=== PATIENT | male | born 1935 | race Caucasian/White ===

== ENCOUNTER 2017-09-22 06:37 | Day surgery (SDC) | payer MEDICARE, BC ==
[2017-09-22 08:07] VITALS: BP 146/62; TEMP 97.8
[2017-09-22 10:21] LABS: CSF, Glucose 51 mg/dl (40-70)
--- NOTE | 2017-09-22 14:40 | RAD ---
LUMBAR PUNCTURE: Date: 09/22/17 HISTORY: Normal pressure hydrocephalus. COMPARISON: None. EXPOSURE: 1.5 minutes fluoro time. 2633.1 mGy*cm^2. FINDINGS: Initial 2 view dermatology sales representative lumbar spine radiograph demonstrates five lumbar-type vertebral bodies. There is moderate degenerative change at the L2-3 level. Vertebral body height is maintained. No fracture. Technically successful lumbar puncture. Opening pressure is approximately 3 mm of water. Closing pres sure is 0 mm of water. A total of 30 mL of clear CSF fluid was obtained. There were no immediate or postprocedure complicati ons. TECHNIQUE: Consent obtained to perform a lumbar puncture for evaluating for normal pressure hydrocephalus. Large volume tap was requested. Patient's back was evaluated. The L1-L2 level was deemed appropriate. Skin was prepped and draped in the sterile fashion. 1% lidocaine, buffered with sodium bicarbonate, was u sed for local anesthesia. Under fluoroscopic guidance, a 20 gauge spinal needle was advanced into the CSF space. Inner stylette was removed. There was clear CSF to the hub of the needle. Opening pressur e was attempted to be determined. The CSF fluid did not extend beyond the hub of the needle. A second attempt was made at the L2-3 level. There was flow of clear CSF to the hub of the needle. Short tubi ng catheter was connected. Opening pressure was 3 mm of water. A total of 30 mL of clear CSF was obta ined. The patient tolerated the procedure well. No immediate or postprocedure complications. The clos ing pressure was 0 mm of water. IMPRESSION: Successful lumbar puncture. Findings of study were conveyed to Dr. Blanco on 09/22/17 at 1057 hours. CODE CR. POS: [facility]
== END 2017-09-22 10:45 | disposition home or self-care (01) ==
LOC: RAD 06:37
PROVIDERS: ATTEND Surgery
PROC: 009 Central Nervous System and Cranial Nerves, Drainage (ICD-10-PCS; principal; 2017-09-22)
DX: G91.9 Hydrocephalus, unspecified (principal); G93.89 Other specified disorders of brain; Z87.891 Personal history of nicotine dependence
CPT/HCPCS: 62270; 82945; 84157; 87070; 87205; 89051

== ENCOUNTER 2018-08-17 07:19 | Emergency (ER) | payer MEDICARE, BC ==
[2018-08-17 07:54] LABS: #Eosinphils 0.1 thou/uL (0.0-0.7); #Lymphocytes 1.8 thou/uL (1.20-3.40); #Monocytes 0.6 thou/uL (0.11-0.59); #Neutrophils 3.5 thou/uL (1.40-6.50); %Basophils 0.7 % (0.0-1.0); %Eosinophils 2.2 % (0.0-10.0); %Lymphocytes 29.7 % (21.0-51.0); %Monocytes 10.4 % (0.0-10.0); Hemoglobin 12.2 g/dL (14.0-18.0); Mean Corpuscular HGB CONC 32.5 g/dL (32.0-36.0); Mean Corpuscular Hemoglobin 32.1 pg (27.0-31.0); Mean Corpuscular Volume 98.8 fL (78.0-98.0); Mean Platelet Volume 9.8 fL (7.4-10.4); Platelet Count 163 thou/uL (130-400); RBC Distribution Width 13.1 % (11.5-14.5); White Blood Cell (WBC) Count 6.1 thou/uL (4.8-10.8)
[2018-08-17 08:14] LABS: ALT (SGPT) 34 U/L (8-55); AST (SGOT) 29 U/L (5-34); Albumin 3.7 g/dL (3.4-4.8); Alkaline Phosphatase 191 U/L (40-150); Anion Gap 10 mmol/L (10-20); BUN (Urea Nitrogen) 16 mg/dL (8.4-25.7); Bilirubin, Total 0.6 mg/dL (0.2-1.2); CK (CPK) 86 U/L (30-200); Calc. Creatinine Clearance 0 mL/min (70-130); Carbon Dioxide 26 mmol/L (23-31); Chloride 108 mmol/L (98-107); Estimated GFR-MDRD 69; Globulin 3.4 g/dL (2.4-3.5); Glucose 102 mg/dL (83-110); Lipase 37 U/L (8-78); Potassium 4.2 mmol/L (3.5-5.1); Protein, Total 7.1 g/dL (5.8-8.1); Sodium 140 mmol/L (136-145)
[2018-08-17 08:17] LABS: CKMB 1.6 ng/mL (0-6.6); Troponin I Less than 0.010 ng/mL (< 0.028)
--- NOTE | 2018-08-17 08:58 | CT ---
CT HEAD NONCOTNRAST: HISTORY: Fall. Head injury. COMPARISON: 04/26/2017. FINDINGS: There is no evidence of acute intracranial hemorrhage or infarct. Diffuse cortical atrophy is again demonstrated. No mass effect or shift of midline structures. Visualized paranasal sinuses remain we ll aerated. Subcutaneous fat parenchymal opacity left frontal scalp. IMPRESSION: 1. Chronic-type findings are stable. No acute intracranial abnormalities are demonstrated. 2. Soft tissue swelling of frontal scalp POS: [facility]
--- NOTE | 2018-08-17 09:24 | CT ---
CT CERVICAL SPINE NONCONTRAST: HISTORY: Fall. Neck injury. COMPARISON: 04/26/2017. FINDINGS: Vertebral body heights are maintained. Anterior operative fixation at the C3-4 level is again demons trated. There is prominent osteophytosis. Multilevel severe central canal and foraminal stenoses, m ost pronounced at the C5-6 and C6-7 levels. No acute fracture or dislocation. Cervicothoracic junct ion is intact. IMPRESSION: Postoperative and prominent degenerative changes. No acute osseous abnormalities are demonstrated. POS: [facility]
--- NOTE | 2018-08-17 09:38 | CT ---
CT CHEST WITH IV COTNRAST CT ABDOMEN AND PELVIS WITH IV CONTRAST CT THORACIC SPINE NONCONTRAST CT LUMBAR SPINE NONCONTRAST: HISTORY: Fall. Chest and abdomen injury. Back injury. FINDINGS: Parenchymal scarring and interstitial thickening at the lung bases. Favored to be chronic. No evide nce of pneumothorax or mediastinal hematoma. Calcification within the arterial structures. There is a 0.5 cm calculus within a nondilated calyx at the inferior pole left kidney. Renal colle cting systems and ureters are decompressed. Diverticula arise from the colon without adjacent inflam mation. No free air or free fluid. Mild compression of the superior end plate of L1 is apparent with noncorticated linear lucencies on t he axial images in the area of compression. Other mild multilevel chronic-appearing compressions are present with prominent osteophytosis through out the vertebral bodies and facets. IMPRESSION: 1. Very mild acute compression fracture of the superior end plate of L1. Posterior elements are not involved. 2. Nonobstructing 5 mm left renal calculus. 3. Atherosclerosis. 4. Diverticulosis. POS: [facility]
[2018-08-17 09:45] LABS: Bilirubin Negative (Negative); Blood, Urine Negative (Negative); Clarity CLEAR (Clear); Glucose, Urine (Dipstick) Negative (Negative); Leukocyte Negative (Negative); Nitrite Negative (Negative); Protein, Urine (Dipstick) Negative (Neg-Trace); Specific Gravity, Urine 1.032 (1.002-1.036)
[2018-08-17] MEDS ORDERED: Lidocaine 1% w/Epinephrine 1:100K 20 ML VIAL ONE (09:53)
[2018-08-17] MEDS ORDERED: traMADol HCl 50 MG TAB ONE (10:24)
[2018-08-17] MEDS ORDERED: cloNIDine 0.1 MG TAB ONE (10:24)
[2018-08-17] MEDS ORDERED: Adacel (T-DAP) 0.5 ML VIAL ONE (10:24)
[2018-08-17] MEDS ORDERED: ISOVUE-370 76%-LOCM 1 ML ONE (13:28)
== END 2018-08-17 12:47 | disposition home or self-care (01) ==
LOC: ERS 07:19
DX: S32.019A Unspecified fracture of first lumbar vertebra, initial encounter for closed fracture (principal); S01.112A Laceration without foreign body of left eyelid and periocular area, initial encounter; E03.9 Hypothyroidism, unspecified; E78.5 Hyperlipidemia, unspecified; I10 Essential (primary) hypertension; K21.9 Gastro-esophageal reflux disease without esophagitis; I25.10 Atherosclerotic heart disease of native coronary artery without angina pectoris; G93.41 Metabolic encephalopathy; H35.30 Unspecified macular degeneration; Z79.899 Other long term (current) drug therapy; Z23 Encounter for immunization; W19.XXXA Unspecified fall, initial encounter; Y92.129 Unspecified place in nursing home as the place of occurrence of the external cause
CPT/HCPCS: 12011; 36415; 70450; 71260; 72125; 74177; 80053; 81003; 82550; 82553; 83690; 84484; 85025; 87077; 87086; 87186; 90471; 90715; 93005; J2001

== ENCOUNTER 2018-09-10 11:02 | Outpatient (CLI) | payer MEDICARE, BC ==
[2018-09-10 13:41] LABS: Hemoglobin 12.9 g/dL (14.0-18.0); Mean Corpuscular HGB CONC 33.3 g/dL (32.0-36.0); Mean Corpuscular Hemoglobin 32.5 pg (27.0-31.0); Mean Corpuscular Volume 97.7 fL (78.0-98.0); Mean Platelet Volume 9.6 fL (7.4-10.4); Platelet Count 173 thou/uL (130-400); RBC Distribution Width 13.2 % (11.5-14.5); Red Blood Cell (RBC) Count 3.97 mill/uL (4.70-6.10); White Blood Cell (WBC) Count 6.6 thou/uL (4.8-10.8)
[2018-09-10 13:56] LABS: INR-International Normal Ratio 1.1; PTT 29.9 SEC (22.9-36.1); Prothrombin Time 14.1 SEC (12.0-14.7)
[2018-09-10 14:01] LABS: Anion Gap 12 mmol/L (10-20); BUN (Urea Nitrogen) 14 mg/dL (8.4-25.7); Calc. Creatinine Clearance 0 mL/min (70-130); Carbon Dioxide 25 mmol/L (23-31); Chloride 107 mmol/L (98-107); Estimated GFR-MDRD 76; Glucose 73 mg/dL (83-110); Potassium 3.8 mmol/L (3.5-5.1); Sodium 140 mmol/L (136-145)
== END 2018-09-10 11:03 | disposition home or self-care (01) ==
LOC: LABBT 11:02
PROVIDERS: ATTEND Surgery
DX: Z01.818 Encounter for other preprocedural examination (principal); G91.9 Hydrocephalus, unspecified
CPT/HCPCS: 80048; 85027; 85610; 85730; 93005; 93010

== ENCOUNTER 2018-09-10 11:15 | Inpatient (IN) | payer MEDICARE, BC ==
[2018-09-10 11:32] VITALS: BMI 29.0
[2018-09-15] MEDS ORDERED: Bacitracin Zinc Ointment 30 gm TUBE ONE (09:21)
[2018-09-15] MEDS ORDERED: Thrombin 5000 UNITS/5 ML VIAL ONE (09:21)
[2018-09-15] MEDS ORDERED: Sodium Chloride 0.9% 10 ML ONE (09:21)
[2018-09-15] MEDS ORDERED: Bupivacaine/Epinephrine 0.25% 30 ML VIAL ONE (09:21)
[2018-09-15] MEDS ORDERED: CEFAZOLIN 2 GM/50 ML BAG ONE (09:58)
[2018-09-15] MEDS ORDERED: Fentanyl 100 MCG/2 ML VIAL ONE (10:09)
[2018-09-15] MEDS ORDERED: Promethazine HCl 25 MG/ML VIAL IM PRN ×2 (11:21→11:42)
[2018-09-15] MEDS ORDERED: PACU-Morphine 4MG/ML VIAL SLOW IVP PRN (11:21)
[2018-09-15] MEDS ORDERED: Promethazine HCl 25 MG/ML VIAL SLOW IVP PRN (11:21)
[2018-09-15] MEDS ORDERED: Ondansetron HCl/PF 4 MG/2 ML Vial IVP PRN (11:21)
[2018-09-15] MEDS ORDERED: Morphine Sulfate 2 MG/ML SYRINGE SLOW IVP PRN (11:21)
[2018-09-15] MEDS ORDERED: HYDROmorphone 2 MG/ML VIAL SLOW IVP PRN (11:21)
[2018-09-15] MEDS ORDERED: Acetaminophen 325 MG TAB PO PRN (11:42)
[2018-09-15] MEDS ORDERED: Labetalol HCl 100 MG/20 ML VIAL SLOW IVP PRN (11:42)
[2018-09-15] MEDS ORDERED: Mag-Al 1200 mg/1200 mg/30 ML UDCUP PO PRN (11:42)
[2018-09-15] MEDS ORDERED: Docusate 100 MG CAP PO PRN (11:42)
[2018-09-15] MEDS ORDERED: Fleet Enema 133 ML BOT PR PRN (11:42)
[2018-09-15] MEDS ORDERED: hydrALAZINE 20 MG/ML VIAL ONE (11:45)
--- NOTE | 2018-09-15 12:27 | OP ---
DATE OF PROCEDURE: 09/15/2018 OR: OR #12. WOUND TYPE: Type 1 wound. SURGEON: Nate Blanco M.D. ENVIRONMENTAL EMERGENCIES PLANNER: Bruce Barakat PA-C. NOTE: I should note that Dr. Fortino Payne assisted with the abdominal portion of the procedure. PROCEDURE: Placement of right ventriculoperitoneal shunt with the use of programmable valve set at 1 .5. PREPROCEDURE DIAGNOSIS: Normal pressure hydrocephalus. POST-PROCEDURE DIAGNOSIS: Normal pressure hydrocephalus. PROCEDURE: After informed consent was obtained from the patient, the patient brought to OR 12. Prop er patient pause and identification was carried out. He was placed under excellent general endotrach eal anesthesia and positioned supine on the OR table with a bump placed under his right thorax and ab domen. This region was sterilely cleansed, prepared, and draped and the abdomen, the thorax, the nec k and the right frontal region following the clipping of hair. A semicircular incision was drawn out in the region of the right Daron's point and a small linear incision in the retroauricular region o n the right side. This region again was all sterilely cleansed, prepared and draped. Proper patient pause and identification was carried out. The right frontal incision was opened, the scalp reflecte d a rosario hole fashion. We then tunneled using the abdominal shunt passer from the retroauricular wou nd down to the peritoneal wound. Dr. Payne received that catheter. We then attached it to the magdalena ve in the right semicircular wound and the dura was opened. Ventricular catheter was placed with ret urn of fair pressure CSF and this was connected to the programmable valve. Copious irrigation occurr ed throughout as did maximizing hemostasis. The wound was then closed in anatomic layers following t he sprinkling of vancomycin powder. The patient then emerged from anesthesia.
[2018-09-15] MEDS: Sodium Chloride 0.9% 1,000 ML IV SCH (13:20)
[2018-09-15] MEDS ORDERED: Ondansetron PF 4 MG/2 ML Vial ONE (14:31)
[2018-09-15] MEDS ORDERED: Dexamethasone 20 MG/5 ML VIAL ONE (14:31)
[2018-09-15] MEDS ORDERED: PROPOFOL 200 MG/20 ML VIAL ONE (14:31)
[2018-09-15] MEDS ORDERED: Metoclopramide HCl 10 MG/2 ML VIAL ONE (14:31)
[2018-09-15] MEDS ORDERED: Lidocaine 1% PF 5 ML VIAL ONE (14:31)
[2018-09-15] MEDS ORDERED: Glycopyrrolate 0.2 MG/ML 5 ML SYRINGE ONE (14:31)
[2018-09-15] MEDS: CEFAZOLIN 2 GM/50 ML BAG IVPB SCH (18:35)
--- NOTE | 2018-09-15 20:26 | OP ---
DATE OF PROCEDURE: 09/15/2018 PREOPERATIVE DIAGNOSIS: Normal pressure hydrocephalus. POSTOPERATIVE DIAGNOSIS: Normal pressure hydrocephalus. PROCEDURE: Laparoscopic placement of permanent intraabdominal drain (abdominal part of ABSTRACT WRITER shunt). SURGEON: Dr. Payne. ANESTHESIA: General. ESTIMATED BLOOD LOSS: Minimal. COMPLICATIONS: None. TECHNIQUE: The patient is taken to the operating room and placed supine on the operating room table. After general anesthetic was obtained, the abdomen, chest, right head and neck is all shaved, prepp ed, and draped in a sterile fashion as Neurosurgery works on the scalp exposure. I performed curved incision below the umbilicus, cautery dissected down to and score the fascia. Abdominal cavity enter ed bluntly using a Caty clamp. Holding stitch of PDS was placed on each side of the fascia. A 5 mm trocar was placed and high-flow pneumoperitoneum was obtained. Right upper quadrant 5-mm port is pl aced as well. Neurosurgery tunneled the tubing for the ABSTRACT WRITER shunt down from the neck, chest and in the epigastric area. A counter incision was made in this area and a hole was made into the peritoneum u p over the liver. The ABSTRACT WRITER shunt tubing is passed up over the liver. The redundancy of the tubing is pulled out into the abdomen until Neurosurgery is happy with length up towards the scalp. All port s ites are infiltrated using local anesthetic. All ports are removed under camera visualization and pn eumoperitoneum was let down. The PDS used to close the fascial defect below the umbilicus. All inci sions were irrigated and closed using 4-0 Monocryl and Dermabond after Neurosurgery finished their po rtion of the procedure. The patient is en route to recovery in stable condition. All instrument cou nts, needle counts, lap counts were correct.
[2018-09-15] MEDS ORDERED: Atorvastatin Calcium 40 MG TAB PO SCH (21:00)
[2018-09-15] MEDS ORDERED: SAW PALMETTO FRUIT 450 MG PO SCH (21:00)
[2018-09-16] MEDS: CEFAZOLIN 2 GM/50 ML BAG IVPB SCH (03:14)
[2018-09-16] MEDS ORDERED: Levothyroxine Sodium 125 MCG TAB PO SCH (06:00)
[2018-09-16] MEDS ORDERED: Modafinil 100 MG TAB PO SCH (09:00)
[2018-09-16] MEDS ORDERED: Venlafaxine HCl XR 75 MG CAP PO SCH (09:00)
[2018-09-16] MEDS: Sodium Chloride 0.9% 1,000 ML IV SCH (09:31)
[2018-09-16 11:41] VITALS: TEMP 98.3
--- NOTE | 2018-09-16 11:56 | PRG ---
DATE OF SERVICE: 09/16/2018 Mr. Sykes is postoperative day 1 from a shunt placement. The shunt is set at 1.5. His wounds are healing well. He is much improved in regards to level of alertness and interaction. He talks approp riately, moves all 4 extremities. He certainly appears to be less clouded cognitively. We will plan to transfer him back to his facility today.
[2018-09-16 12:08] VITALS: BP 134/66
== END 2018-09-16 13:50 | DRG 33 ==
LOC: INTOOBSV 09-15 08:12 → OBSVTOIN 09-15 08:12 → SURG A 09-15 08:12
PROVIDERS: ADMIT Surgery; ATTEND Surgery
PROC: 00164J6 Bypass Cerebral Ventricle to Peritoneal Cavity with Synthetic Substitute, Percutaneous Endoscopic Approach (ICD-10-PCS; principal; 2018-09-15)
DX: G91.2 (Idiopathic) normal pressure hydrocephalus (principal); G47.33 Obstructive sleep apnea (adult) (pediatric); I25.10 Atherosclerotic heart disease of native coronary artery without angina pectoris; E78.5 Hyperlipidemia, unspecified
CPT/HCPCS: 96365; 96366; G0378; G8978-GP-CM; G8979-GP-CK; J0131; J0360; J1100; J2001; J2405; J2704; J2765; J3010; J3370; J3490

== ENCOUNTER 2018-09-30 10:49 | Observation (INO) | payer MEDICARE, BC ==
[~2018-09-30 10:49] MED LIST: Iopamidol 370 76% 100 ML VIAL ONE
[2018-09-30 11:33] LABS: #Eosinphils 0.1 thou/uL (0.0-0.7); #Lymphocytes 0.5 thou/uL (1.20-3.40); #Monocytes 0.6 thou/uL (0.11-0.59); #Neutrophils 9.8 thou/uL (1.40-6.50); %Basophils 0.2 % (0.0-1.0); %Eosinophils 0.5 % (0.0-10.0); %Lymphocytes 4.3 % (21.0-51.0); %Monocytes 5.7 % (0.0-10.0); %Neutrophils 89.4 % (42.0-75.0); Hemoglobin 13.8 g/dL (14.0-18.0); Mean Corpuscular Hemoglobin 32.2 pg (27.0-31.0); Mean Corpuscular Volume 97.7 fL (78.0-98.0); Mean Platelet Volume 9.7 fL (7.4-10.4); Platelet Count 179 thou/uL (130-400); RBC Distribution Width 13.1 % (11.5-14.5); Red Blood Cell (RBC) Count 4.27 mill/uL (4.70-6.10); White Blood Cell (WBC) Count 10.9 thou/uL (4.8-10.8)
[2018-09-30] MEDS ORDERED: Ondansetron PF 4 MG/2 ML Vial ONE (11:35)
[2018-09-30] MEDS ORDERED: Morphine 4 MG/ML VIAL ONE (11:57)
[2018-09-30] MEDS ORDERED: Morphine 2 MG/ML SYRINGE ONE (11:58)
--- NOTE | 2018-09-30 11:59 | RAD ---
RADIOGRAPH CHEST 1 VIEW: HISTORY: 83-year-old male with chest pain. FINDINGS: The thoracic aorta is tortuous and ectatic. There is no evidence of air space density, pneumothorax, or pulmonary edema. The lateral costophrenic angles are sharp. IMPRESSION: 1) No acute pulmonary findings. 2) Ectasia of thoracic aorta. shoaib POS: [facility]
[2018-09-30] MEDS ORDERED: Acetaminophen 325 MG Suppository ONE (12:08)
--- NOTE | 2018-09-30 12:13 | CT ---
CT ABDOMEN WITH CONTRAST CT PELVIS WITH CONTRAST: DATE: 09-30-18 HISTORY: 83-year-old male with generalized abdominal pain and abdominal distention. Rule out small bowel obstr uction. COMPARISON: 08-17-18 TECHNIQUE: IV injection of iodinated contrast media: 100 mL Isovue 370 Oral contrast media: Not administered FINDINGS: The stomach is distended with ingested liquid and a moderate amount of gas. This is new since the pre vious CT. Again noted is the approximately 0.5 cm calculus at a left renal lower pole calyx. No hydro nephrosis bilaterally. No major pathology of the liver, spleen, right kidney, adrenals, pancreas or s pleen. FISH BUTCHER shunt catheter is again demonstrated in the right upper quadrant of the perioneal cavity wh ich extends across the midline to the left just superior to the urinary bladder. Normal appearance of the urinary bladder. Surgically absent appendix by history. No signs of colonic diverticulitis. Suba cute compression fracture of superior endplate of L1. Old compression fracture of L3. No ascites or p neumoperitoneum. No pleural effusion. IMPRESSION: 1. Gastric distension. 2. No other acute intraabdominal or intrapelvic findings. 3. Nephrolithiasis consisting of a single left renal calculus. 4. Ventriculoperitoneal shunt catheter. 5. Subacute L1 compression fracture. 6. No evidence of small bowel obstruction. EMILY Slater POS: [facility]
[2018-09-30 12:17] LABS: ALT (SGPT) 39 U/L (8-55); AST (SGOT) 34 U/L (5-34); Alkaline Phosphatase 246 U/L (40-150); Anion Gap 15 mmol/L (10-20); BUN (Urea Nitrogen) 20 mg/dL (8.4-25.7); Bilirubin, Total 0.9 mg/dL (0.2-1.2); Calc. Creatinine Clearance 0 mL/min (70-130); Calcium 9.2 mg/dL (7.8-10.44); Carbon Dioxide 23 mmol/L (23-31); Chloride 108 mmol/L (98-107); Estimated GFR-MDRD 53; Glucose 165 mg/dL (83-110); Potassium 4.5 mmol/L (3.5-5.1); Sodium 141 mmol/L (136-145)
[2018-09-30 12:21] LABS: Bilirubin Negative (Negative); Blood, Urine Negative (Negative); Clarity CLEAR (Clear); Glucose, Urine (Dipstick) Negative (Negative); Leukocyte Negative (Negative); Nitrite Negative (Negative); Protein, Urine (Dipstick) Negative (Neg-Trace); Specific Gravity, Urine 1.012 (1.002-1.036); pH, Urine 6.5 (5.0-9.0)
--- NOTE | 2018-09-30 15:43 | CT ---
HEAD CT NONCONTRAST: 09/30/18 COMPARISON: 08/17/18 INDICATIONS: Fever, status post ventriculoperitoneal shunt placement. Reference made to 08/15/18 exam. FINDINGS: There is a right frontal approach ventriculostomy with tip located at midline, abutting the anterior aspect of the septum pellucidum. The ventricular system is prominent, grossly stable. There is gener alized parenchymal atrophy. White matter hypoattenuation of the right frontal lobe traverses the ind welling shunt catheter likely reactive edema. No intracranial hemorrhage, mass effect or midline shif t. IMPRESSION: 1. Interval placement of right frontal approach ventriculostomy with tip abutting the anterior a spect of the septum pellucidum. 2. Persistent, grossly stable prominence of ventricular system. 3. No acute intracranial hemorrhage or mass effect. POS: [facility]
[2018-09-30 16:30] LABS: Lactic Acid 1.9 mmol/L (0.5-2.2)
[2018-09-30] MEDS ORDERED: Acetaminophen 325 MG TAB PO PRN (17:26)
[2018-09-30] MEDS ORDERED: Sodium Chloride 0.9% 1,000 ML IV SCH (17:26)
[2018-09-30] MEDS ORDERED: Ondansetron ODT 4 MG TAB PO PRN (17:26)
[2018-09-30] MEDS ORDERED: Ondansetron PF 4 MG/2 ML Vial IVP PRN (17:26)
[2018-09-30 17:45] VITALS: BMI 32.3
[2018-09-30] MEDS ORDERED: Vancomycin HCl 1 GM in Premix Bag 1 BAG IVPB SCH (18:00)
[2018-09-30] MEDS: Sodium Chloride 0.9% 1,000 ML IV SCH ×2 (18:35→23:28)
--- NOTE | 2018-09-30 23:31 | HP ---
I have discussed the case with Dr. Manas Jaime. I agree with his assessment and plan. HISTORY OF PRESENT ILLNESS: Mr. Sykes is an 83-year-old white male patient, who underwent a BALLET PROFESSOR shunt placement on 09/15 due to normal pressure hydrocephalus. He was recovering in a long-term when this morning he was found to be altered and febrile. He was brought to our emergency room, where a CT of the abdomen was done to rule out small bowel obstruction. There was no evidence of small bowel obstruction, but the patient did have gastric distention. His chest x-ray does not show any evidence of infection. His white count is barely elevated. He is very lethargic, even fast asleep, but he was given 6 mg of morphine an hour or so before we actually evaluated him. PHYSICAL EXAMINATION: GENERAL: As stated, he is asleep. There appears to be no respiratory distress. VITAL SIGNS: He had a reported temperature of 102 degrees. EAR, NOSE, THROAT: No overt signs of trauma or fall. No erythema. NECK: Stiff, but this is hard to tell if it may be related to his age, body habitus, and significant osteoarthritis of the spine. CARDIAC: Heart rhythm is regular. No gallop or murmur noted. LUNGS: Breath sounds are diminished, but clear. There are no rales or wheezes. No consolidation. He is not using accessory muscles. ABDOMEN: Slightly distended, particularly above the umbilicus and just to the right. Bowel sounds are greatly diminished. No masses are appreciated. Hard to appreciate guarding given the patient's somnolence. EXTREMITIES: Again, hard to evaluate because the patient is sedated. LABORATORY DATA: CBC, white count 10,900, hemoglobin 13.8, hematocrit 41.7 with an MCV of 97.7. Chemistries, sodium 131, potassium 4.5, chloride 108, bicarb 23, BUN 20, creatinine is 1.31, glucose 155. Lactic acid very slightly elevated at 2.7. Urine appears clear. ASSESSMENT: Possible sepsis, no source currently. We will obtain cultures of blood and urine. We will discuss with Neurosurgery, who has already been consulted, whether or not an LP would be advisable given his fever and altered state. We will also talk with the surgery service, Dr. Payne about the placement of an NG tube for his gastric distention. Job ID: [id number]
[2018-10-01] MEDS: Acetaminophen 650 MG Suppository PR PRN ×4 (01:08→20:59)
[2018-10-01] MEDS: Piperacillin/Tazobactam 3.375 GM in Sodium Chloride 0.9% 100 ML IVPB SCH ×4 (01:08→18:28)
--- NOTE | 2018-10-01 01:29 | HP ---
RESIDENT: Manas Jaime MD. ADDITIONAL ATTENDING: Greg Harrison MD CODE STATUS: FULL. CHIEF COMPLAINT: Altered mental status and abdominal distension. HISTORY OF PRESENT ILLNESS: The patient is an 83-year-old male, presenting from the custodial with essentially a 1-day history of decreased p.o. intake and abdominal distension. The patient was in a normal state of health yesterday until he did not eat dinner. Again this morning, the patient did not tolerate p.o. and was found to be less interactive than at his baseline and taken to his PCP's office. PCP evaluated and sent him to the ER. Family denies any nausea, vomiting, diarrhea, hematochezia, melena, or hemoptysis. The patient was recently admitted on 09/15 for placement of a TAXI CAB DRIVER shunt. This was done without any complications. Family reports he has not been complaining of headaches, abdominal pain, changes in vision or stiff neck prior to this admission. Seems these symptoms are sudden onset and with unexplained etiology. The patient was given 6 mg of morphine in the ER, which he does not tolerate very well. This coupled with the baseline altered mental status makes it impossible to gain history from the patient himself. History was gathered per family members. In the ER, the patient received Tylenol 650 mg, morphine 6 mg, Zofran 4 mg and 1 L of normal saline. PAST MEDICAL HISTORY: 1. Normal pressure hydrocephalus, status post TAXI CAB DRIVER shunt. 2. Hyperlipidemia. 3. CAD. 4. Hypothyroidism. 5. Chronic low back pain. 6. Essential tremor. PAST SURGICAL HISTORY: 1. TAXI CAB DRIVER shunt placement on 09/15/2018. 2. Cardiac catheterization with stent placement. 3. Appendectomy. 4. Carpal tunnel release, bilaterally. 5. C-spine diskectomy. ALLERGIES: NO KNOWN DRUG ALLERGIES. MEDICATIONS: 1. Levothyroxine 100 mcg p.o. q.a.m. 2. Fish oil 1000 mg. 3. Vitamin C 1000 mg. 4. B12 of 500 mcg. SOCIAL HISTORY: Denies tobacco, alcohol, or drugs per family members. He is retired with 5 children. REVIEW OF SYSTEMS: Unable to be obtained due to the patient's status. PHYSICAL EXAMINATION: VITAL SIGNS: Blood pressure 143/65, pulse of 97, respirations 24, O2 sats of 97 % on room air, and temperature 102.1 rectally. GENERAL: The patient is not responding, but breathing on his own. ENT: Tympanic membranes pearly page without bulging or erythema. Mucous membranes appear dry. NECK: Supple with no lymphadenopathy. CARDIOVASCULAR: Regular rate and rhythm with no murmurs. PULM: Clear to auscultation bilaterally. SKIN: Warm and dry. No cyanosis or lesions. ABDOMEN: Soft. There is no guarding or tenderness to palpation. Bowel sounds are present. EXTREMITIES: Show no clubbing or cyanosis. NEUROLOGIC: Unable to neurologic exam due to the patient's status. LABORATORY AND IMAGING DATA: White blood cell count 10.9, hemoglobin 13.8, hematocrit 41.7, and platelets 179. Sodium 141, potassium 4.5, chloride 108, carbon dioxide 23, BUN 20, creatinine 1.31, glucose 165, lactic acid 1.9, calcium 9.2, total bilirubin 0.9, AST 34, ALT 39, and alkaline phosphatase 246. Serum protein 8.0 and albumin 4.0. UA is negative. Chest x-ray shows no acute pulmonary findings. CT of the abdomen and pelvis shows gastric distension, but no other acute intraabdominal or intrapelvic findings. The TAXI CAB DRIVER shunt catheter is in place and there is no evidence of a small bowel obstruction. CT of the brain shows proper placement of TAXI CAB DRIVER shunt, persisting grossly stable prominence of the ventricular system. No acute intracranial hemorrhages or mass effect seen. ASSESSMENT AND PLAN: 1. Sepsis with unknown source. Start broad-spectrum antibiotics with vancomycin and Zosyn. Neurosurgery has been consulted, has read the CT of the brain and do not recommend an LP at this time. General Surgery was consulted at the ER and do not believe this is a small bowel obstruction, consistent with the Radiology read. We will obtain urine and blood cultures. Continue Infectious workup. We will check a TSH as well. 2. Altered mental status. Thought that the opioid has at least contributed mildly to patient obtunded status. His vital signs have corrected after a liter of fluid. We will give an additional liter of normal saline and reassess mental status this evening when the morphine is worn off. Common sources for infection of respiratory tract and urinary tract appear normal at this time. We will again speak with Neurosurgery and General Surgery regarding plans of care and moving forward. 3. Hypothyroidism. Continue home medications. 4. Hyperlipidemia. Continue home medications. 5. 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 Symptomatic medications will be provided. Anticipate 3+ day length of stay. History and physical exam and plan discussed with Dr. Greg Harrison. Job ID: [id number] [facility]
[2018-10-01] MEDS: Sodium Chloride 0.9% 1,000 ML IV SCH ×3 (04:19→20:59)
[2018-10-01 05:44] LABS: #Lymphocytes 0.6 thou/uL (1.20-3.40); #Monocytes 0.5 thou/uL (0.11-0.59); #Neutrophils 4.8 thou/uL (1.40-6.50); %Eosinophils 0.3 % (0.0-10.0); %Lymphocytes 9.5 % (21.0-51.0); %Monocytes 8.4 % (0.0-10.0); %Neutrophils 81.9 % (42.0-75.0); Hemoglobin 11.7 g/dL (14.0-18.0); Mean Corpuscular Hemoglobin 33.3 pg (27.0-31.0); Mean Corpuscular Volume 97.8 fL (78.0-98.0); Mean Platelet Volume 9.5 fL (7.4-10.4); Platelet Count 128 thou/uL (130-400); RBC Distribution Width 13.2 % (11.5-14.5); Red Blood Cell (RBC) Count 3.51 mill/uL (4.70-6.10); White Blood Cell (WBC) Count 5.9 thou/uL (4.8-10.8)
--- NOTE | 2018-10-01 05:49 | PDOC.FM ---
Addendum entered and electronically signed by Michael Thomas DO 10/01/18 08:47 : Correction. Pt. is not AAOx3. At best, Pt is awake. Original Note: - Subjective Subjective: Pt was lethargic this morning. He was unable to answer questions but would follow commands. - Objective MAR Reviewed: Yes Vital Signs & Weight: Vital Signs (12 hours) Temp Pulse Resp BP Pulse Ox 10/01/18 05:22 74 117/52 L 10/01/18 04:40 98.1 F 88 16 96/54 L 91 L 10/01/18 00:49 101.0 F H 87 16 137/61 91 L 09/30/18 20:20 98.1 F 102 H 16 136/70 93 L Weight Weight 90.945 kg Result Diagrams: 10/01/18 04:33 10/01/18 04:33 <Michael Thomas - Last Filed: 10/01/18 08:34> - Objective Vital Signs & Weight: Vital Signs (12 hours) Temp Pulse Resp BP Pulse Ox 10/01/18 08:18 102.2 F H 91 20 173/60 H 88 L 10/01/18 07:04 86 16 97 10/01/18 05:22 74 117/52 L 10/01/18 04:40 98.1 F 88 16 96/54 L 91 L 10/01/18 00:49 101.0 F H 87 16 137/61 91 L Weight Weight 90.945 kg Result Diagrams: 10/01/18 04:33 10/01/18 04:33 <Miguel Haynes - Last Filed: 10/01/18 09:27> Phys Exam - Physical Examination Constitutional: NAD HEENT: moist MMs Neck: no JVD Respiratory: no rales, wheezing present Cardiovascular: RRR, no significant murmur Gastrointestinal: soft, no distention, positive bowel sounds Musculoskeletal: no edema, pulses present exam limited due to pt's lethargy Psychiatric: A&O x 3 Skin: cap refill <2 seconds <Michael Thomas - Last Filed: 10/01/18 08:34> Dx/Plan (1) Sepsis Code(s): A41.9 - SEPSIS, UNSPECIFIED ORGANISM Status: Acute (2) CKD (chronic kidney disease), stage II Code(s): N18.2 - CHRONIC KIDNEY DISEASE, STAGE 2 (MILD) Status: Acute (3) Hydrocephalus Code(s): G91.9 - HYDROCEPHALUS, UNSPECIFIED Status: Acute (4) Hyperlipidemia Code(s): E78.5 - HYPERLIPIDEMIA, UNSPECIFIED Status: Chronic (5) Hypothyroidism Code(s): E03.9 - HYPOTHYROIDISM, UNSPECIFIED Status: Chronic - Plan Plan: This is an 83 yo male with a PMH of HLD, hypothyroidismm, CKD, and hydrocephalus Sepsis with unknown source -Pt is on Vanc and Zosyn (09/30) -Pending blood and urine cultures -Neurosurgery does not think an LP is warranted at this time. -Pt has had some wheezing, we are starting PRN duonebs AMS -Pt is following commands but unable to fully assess his current mental capacity -Likely 2/2 above Hypothyroidism -Continue home meds -TSH is 0.33 HLD -Continue home meds CKD stage 2 -Appears at baseline, improving GFR <Michael Thomas - Last Filed: 10/01/18 08:34> Attending Addendum - Attending Addendum Date/Time: 10/01/1824 I personally evaluated the patient and discussed the management with Dr. Thomas I agree with the History, Examination, Assessment and Plan documented above with any addition or exceptions noted below. 83M who continues to be febrile since admission for meeting sepsis criteria but with an unknown source. Does not appear to be a respiratory or urologic source. Blood pressure and pulse remain stable. Requiring 2L NC to maintain oxygen saturations. Continue broad spectrum antibiotics with blood and urine cultures pending. Neurosurgery to evaluate again today. Possible LP by IR. <Miguel Haynes - Last Filed: 10/01/18 09:27>
[2018-10-01 06:01] LABS: Anion Gap 11 mmol/L (10-20); BUN (Urea Nitrogen) 25 mg/dL (8.4-25.7); Calc. Creatinine Clearance 63 mL/min (70-130); Calcium 8.1 mg/dL (7.8-10.44); Carbon Dioxide 23 mmol/L (23-31); Chloride 112 mmol/L (98-107); Estimated GFR-MDRD 59; Glucose 113 mg/dL (83-110); Potassium 3.6 mmol/L (3.5-5.1); Sodium 142 mmol/L (136-145)
[2018-10-01] MEDS: Enoxaparin Sodium 40 MG/0.4 ML SYRINGE SC SCH (08:10)
[2018-10-01] MEDS: Vancomycin HCl 1.5 GM in Sodium Chloride 0.9% 250 ML 300 ML IVPB SCH (15:07)
[2018-10-02] MEDS: Piperacillin/Tazobactam 3.375 GM in Sodium Chloride 0.9% 100 ML IVPB SCH ×4 (00:22→18:32)
[2018-10-02] MEDS: Sodium Chloride 0.9% 1,000 ML IV SCH ×3 (03:41→22:35)
--- NOTE | 2018-10-02 05:30 | PDOC.FM ---
- Subjective Subjective: Pt states he is doing ok this morning. He denies pain. Nursing states he had multiple bowel movements overnight. He received a tylenol in response to his temperature of 99.9 - Objective MAR Reviewed: Yes Vital Signs & Weight: Vital Signs (12 hours) Temp Pulse Resp BP Pulse Ox 10/02/18 03:40 98.6 F 69 18 141/60 H 98 10/02/18 00:22 98.7 F 76 20 149/64 H 97 10/01/18 21:00 99.9 F H 80 16 135/62 96 Weight Weight 90.945 kg I&O: 09/30/18 10/01/18 10/02/18 06:59 06:59 06:59 Intake Total 100 Balance 100 Result Diagrams: 10/02/18 05:48 10/02/18 05:48 <Michael Thomas - Last Filed: 10/02/18 07:44> - Objective Vital Signs & Weight: Vital Signs (12 hours) Temp Pulse Resp BP Pulse Ox 10/02/18 07:30 98.3 F 65 16 148/66 H 97 10/02/18 03:40 98.6 F 69 18 141/60 H 98 10/02/18 00:22 98.7 F 76 20 149/64 H 97 Weight Weight 90.945 kg I&O: 10/01/18 10/02/18 10/03/18 06:59 06:59 06:59 Intake Total 1900 Balance 1900 Result Diagrams: 10/02/18 05:48 10/02/18 05:48 <Miguel Haynes - Last Filed: 10/02/18 10:19> Phys Exam - Physical Examination Constitutional: NAD HEENT: moist MMs Respiratory: no wheezing, clear to auscultation bilateral Cardiovascular: RRR, no significant murmur Gastrointestinal: soft, no distention, positive bowel sounds Pt. grimaced with palpation to right abdomen Musculoskeletal: pulses present Pt. appears to have some swelling in his hands +1 pitting edema in lower legs to mid cao Neurological: moves all 4 limbs Deviation from normal: Awake, more responsive than yesterday continues to follow basic commands and improved alertness Skin: no rash, cap refill <2 seconds <Michael Thomas - Last Filed: 10/02/18 07:44> Dx/Plan (1) Sepsis Code(s): A41.9 - SEPSIS, UNSPECIFIED ORGANISM Status: Acute (2) CKD (chronic kidney disease), stage II Code(s): N18.2 - CHRONIC KIDNEY DISEASE, STAGE 2 (MILD) Status: Acute (3) Hydrocephalus Code(s): G91.9 - HYDROCEPHALUS, UNSPECIFIED Status: Acute (4) Hyperlipidemia Code(s): E78.5 - HYPERLIPIDEMIA, UNSPECIFIED Status: Chronic (5) Hypothyroidism Code(s): E03.9 - HYPOTHYROIDISM, UNSPECIFIED Status: Chronic - Plan Plan: This is an 83 yo male with a PMH of HLD, hypothyroidismm, CKD, and hydrocephalus Sepsis with unknown source -Pt is on Vanc and Zosyn (09/30) -Pending blood and urine cultures -Afebrile overnight -Neurosurgery does not think an LP is warranted at this time. We will appreciate their recommendations -Pt has had some wheezing, we are starting PRN duonebs -WBC are WNL this morning AMS -Pt is following commands but unable to fully assess his current mental capacity -We discussed with family that baseline is talkative, moderate ADL independence -Likely 2/2 above Hypothyroidism -Continue home meds -TSH is 0.33 HLD -Continue home meds CKD stage 2 -Appears at baseline, improving GFR <Michael Thomas - Last Filed: 10/02/18 07:44> Attending Addendum - Attending Addendum Date/Time: 10/02/18 1008 I personally evaluated the patient and discussed the management with Dr. Thomas I agree with the History, Examination, Assessment and Plan documented above with any addition or exceptions noted below. Patient with blood and urine cultures negative to date. He has had several BM's overnight. He is more interactive as compared to prior days but is still significantly somnolent. Will attempt to sit patient up in bed today and encourage interaction with family. Continue broad spectrum abx until cultures finalize. Leukocytosis has resolved and vital signs remain normal. <Miguel Haynes - Last Filed: 10/02/18 10:19>
[2018-10-02 06:55] LABS: #Lymphocytes 1.5 thou/uL (1.20-3.40); #Monocytes 0.9 thou/uL (0.11-0.59); #Neutrophils 5.1 thou/uL (1.40-6.50); %Basophils 0.1 % (0.0-1.0); %Eosinophils 0.7 % (0.0-10.0); %Lymphocytes 20.4 % (21.0-51.0); %Monocytes 11.5 % (0.0-10.0); %Neutrophils 67.4 % (42.0-75.0); Hemoglobin 10.5 g/dL (14.0-18.0); Mean Corpuscular HGB CONC 33.8 g/dL (32.0-36.0); Mean Corpuscular Volume 97.6 fL (78.0-98.0); Mean Platelet Volume 9.8 fL (7.4-10.4); Platelet Count 111 thou/uL (130-400); Red Blood Cell (RBC) Count 3.17 mill/uL (4.70-6.10); White Blood Cell (WBC) Count 7.5 thou/uL (4.8-10.8)
[2018-10-02 07:00] LABS: Anion Gap 11 mmol/L (10-20); BUN (Urea Nitrogen) 22 mg/dL (8.4-25.7); Calc. Creatinine Clearance 72 mL/min (70-130); Carbon Dioxide 21 mmol/L (23-31); Chloride 116 mmol/L (98-107); Estimated GFR-MDRD 69; Glucose 86 mg/dL (83-110); Potassium 3.8 mmol/L (3.5-5.1); Sodium 144 mmol/L (136-145)
[2018-10-02] MEDS: Enoxaparin Sodium 40 MG/0.4 ML SYRINGE SC SCH (08:42)
[2018-10-02] MEDS: Vancomycin HCl 1.5 GM in Sodium Chloride 0.9% 250 ML 300 ML IVPB SCH (15:16)
[2018-10-03] MEDS: Piperacillin/Tazobactam 3.375 GM in Sodium Chloride 0.9% 100 ML IVPB SCH ×4 (03:26→17:32)
[2018-10-03 06:36] LABS: #Eosinphils 0.2 thou/uL (0.0-0.7); #Lymphocytes 1.4 thou/uL (1.20-3.40); #Monocytes 0.7 thou/uL (0.11-0.59); #Neutrophils 4.6 thou/uL (1.40-6.50); %Basophils 0.1 % (0.0-1.0); %Eosinophils 3.4 % (0.0-10.0); %Lymphocytes 19.6 % (21.0-51.0); %Monocytes 10.1 % (0.0-10.0); %Neutrophils 66.7 % (42.0-75.0); Hemoglobin 11.6 g/dL (14.0-18.0); Mean Corpuscular HGB CONC 33.9 g/dL (32.0-36.0); Mean Corpuscular Hemoglobin 32.5 pg (27.0-31.0); Mean Corpuscular Volume 95.9 fL (78.0-98.0); Mean Platelet Volume 10.2 fL (7.4-10.4); Platelet Count 88 thou/uL (130-400); RBC Distribution Width 12.7 % (11.5-14.5); Red Blood Cell (RBC) Count 3.56 mill/uL (4.70-6.10); White Blood Cell (WBC) Count 6.9 thou/uL (4.8-10.8)
--- NOTE | 2018-10-03 06:38 | PDOC.FM ---
- Subjective Subjective: Patient was alert this AM and stated that he felt pretty good. Denied any CP, SOB, or abdominal pain. Says it is only a little tender when he presses on it himself. Was oriented to city and year as well as person. - Objective MAR Reviewed: Yes Vital Signs & Weight: Vital Signs (12 hours) Temp Pulse Resp BP Pulse Ox 10/03/18 04:00 97.6 F 61 16 152/72 H 98 10/03/18 00:00 98 F 61 16 154/74 H 98 10/02/18 20:05 98.1 F 63 16 144/78 H 98 Weight Weight 90.945 kg I&O: 10/01/18 10/02/18 10/03/18 06:59 06:59 06:59 Intake Total 1900 Balance 1900 Result Diagrams: 10/03/18 06:17 10/03/18 06:17 Phys Exam - Physical Examination Constitutional: NAD HEENT: sclera anicteric dry mucus membranes, especially lips Neck: supple, full ROM Respiratory: no wheezing, no rales, no rhonchi, clear to auscultation bilateral Cardiovascular: RRR, no significant murmur Gastrointestinal: soft, non-tender, no distention, positive bowel sounds Musculoskeletal: no edema Neurological: non-focal, moves all 4 limbs Psychiatric: normal affect Deviation from normal: Oriented to person but fuzzy on place and time. Skin: no rash Dx/Plan (1) CKD (chronic kidney disease), stage II Code(s): N18.2 - CHRONIC KIDNEY DISEASE, STAGE 2 (MILD) Status: Acute (2) Sepsis Code(s): A41.9 - SEPSIS, UNSPECIFIED ORGANISM Status: Acute (3) Coronary artery disease Code(s): I25.10 - ATHSCL HEART DISEASE OF [place] CORONARY ARTERY W/O ANG PCTRS Status: Chronic (4) Hyperlipidemia Code(s): E78.5 - HYPERLIPIDEMIA, UNSPECIFIED Status: Chronic (5) Hypothyroidism Code(s): E03.9 - HYPOTHYROIDISM, UNSPECIFIED Status: Chronic - Plan Plan: This is an 83 yo male with a PMH of HLD, hypothyroidismm, CKD, and a h/o normal pressure hydrocephalus s/p NUTRITION PROFESSOR shunt placement who presented to the ED w/ a CC of day of decreased PO intake and abdominal distension who was found to have sepsis of an unknown source in the ED. Sepsis with unknown source - Pt is on Vanc and Zosyn (09/30) due to possible infection of unknown source at this point. Will consider deescalating antibiotics as blood and urine cultures showed no growth at 48 hours. Fever could possibly be due to a simple viral infection and AMS likely 2/2 narcotics he was receiving at the [place]. - Has remained afebrile for over 24 hours now. - Neurosurgery did not recommend an LP at this time & general surgery did not believe patient had a SBO. - Will consider ordering a procalcitonin. AMS - Improved. Patient was conversant and answered all questions appropriately this AM. Oriented to person but a still confused about place and time. - Likely 2/2 infection and/or narcotics at [place]. - Will continue to monitor closely for any acute changes. - Will advance diet to mechanical soft for now and place a speech consult for a formal evaluation to clear patient for regular diet. Hypothyroidism - TSH was low at 0.33 on admission. Will adjust home meds accordingly and continue. HLD - Aware, will continue home meds. CKD stage 2 - Appears to be at baseline. - Will continue to monitor w/ QD labs.
[2018-10-03 06:50] LABS: Anion Gap 10 mmol/L (10-20); BUN (Urea Nitrogen) 15 mg/dL (8.4-25.7); Calc. Creatinine Clearance 85 mL/min (70-130); Calcium 8.2 mg/dL (7.8-10.44); Carbon Dioxide 21 mmol/L (23-31); Chloride 112 mmol/L (98-107); Estimated GFR-MDRD 83; Glucose 77 mg/dL (83-110); Potassium 3.5 mmol/L (3.5-5.1); Sodium 139 mmol/L (136-145)
[2018-10-03] MEDS: Sodium Chloride 0.9% 1,000 ML IV SCH ×2 (06:53→12:18)
[2018-10-03] MEDS: Enoxaparin Sodium 40 MG/0.4 ML SYRINGE SC SCH (08:12)
[2018-10-03 12:48] LABS: Vancomycin, Trough 11.9 ug/mL
--- NOTE | 2018-10-03 13:47 | EKG ---
Test Reason : Blood Pressure : / mmHG Vent. Rate : 120 BPM Atrial Rate : 120 BPM P-R Int : 160 ms QRS Dur : 086 ms QT Int : 314 ms P-R-T Axes : 023 -51 069 degrees QTc Int : 443 ms Sinus tachycardia Left anterior fascicular block Septal infarct , age undetermined Abnormal ECG Confirmed by NIA ZLEAYA DO ([id number]), image editor SALINA LOPEZ ([id number]) on 10/03/2018 1:47:35 PM Referred By: Confirmed By:NIA ZELAYA DO
[2018-10-03] MEDS: Vancomycin HCl 1.5 GM in Sodium Chloride 0.9% 250 ML 300 ML IVPB SCH (13:57)
[2018-10-04] MEDS: Piperacillin/Tazobactam 3.375 GM in Sodium Chloride 0.9% 100 ML IVPB SCH ×2 (01:40→06:34)
[2018-10-04] MEDS: Sodium Chloride 0.9% 1,000 ML IV SCH ×3 (05:06→20:38)
[2018-10-04 06:59] LABS: Anion Gap 12 mmol/L (10-20); BUN (Urea Nitrogen) 13 mg/dL (8.4-25.7); Calc. Creatinine Clearance 78 mL/min (70-130); Calcium 8.4 mg/dL (7.8-10.44); Carbon Dioxide 21 mmol/L (23-31); Chloride 111 mmol/L (98-107); Estimated GFR-MDRD 76; Glucose 89 mg/dL (83-110); Potassium 4.2 mmol/L (3.5-5.1); Sodium 140 mmol/L (136-145)
[2018-10-04 07:03] LABS: #Eosinphils 0.3 thou/uL (0.0-0.7); #Lymphocytes 1.9 thou/uL (1.20-3.40); #Monocytes 0.8 thou/uL (0.11-0.59); #Neutrophils 4.2 thou/uL (1.40-6.50); %Eosinophils 3.6 % (0.0-10.0); %Lymphocytes 26.2 % (21.0-51.0); %Monocytes 10.8 % (0.0-10.0); %Neutrophils 59.5 % (42.0-75.0); Mean Corpuscular HGB CONC 33.6 g/dL (32.0-36.0); Mean Corpuscular Volume 95.3 fL (78.0-98.0); Mean Platelet Volume 9.8 fL (7.4-10.4); Platelet Count 112 thou/uL (130-400); RBC Distribution Width 12.5 % (11.5-14.5); Red Blood Cell (RBC) Count 3.73 mill/uL (4.70-6.10); White Blood Cell (WBC) Count 7.1 thou/uL (4.8-10.8)
--- NOTE | 2018-10-04 08:11 | PDOC.FM ---
- Subjective Subjective: NAEO. Patient reports feeling alright this AM. Denies any SOB, headaches, blurry vision, chest pain, N/V/D or constipation. Denies any fever or chills as well. Is oriented to person only. Is complaining of burning in his eyes, especially his right eye which he was rubbing throughout the interview. - Objective MAR Reviewed: Yes Vital Signs & Weight: Weight Weight 90.945 kg I&O: 10/03/18 10/04/18 10/05/18 06:59 06:59 06:59 Intake Total 1200 Balance 1200 Result Diagrams: 10/04/18 05:32 10/04/18 05:32 <Raisa Hernández - Last Filed: 10/04/18 09:22> - Objective Vital Signs & Weight: Vital Signs (12 hours) Temp Pulse Resp BP Pulse Ox 10/04/18 08:15 98.5 F 69 20 178/72 H 98 Weight Weight 90.945 kg I&O: 10/03/18 10/04/18 10/05/18 06:59 06:59 06:59 Intake Total 1200 Balance 1200 Result Diagrams: 10/04/18 05:32 10/04/18 05:32 <Miguel Haynes - Last Filed: 10/04/18 11:28> Phys Exam - Physical Examination Constitutional: NAD HEENT: moist MMs conjunctival erythema R>L and conjunctival injection B/L Neck: supple, full ROM Respiratory: no wheezing, no rales, no rhonchi, clear to auscultation bilateral Cardiovascular: RRR, no significant murmur Gastrointestinal: soft, non-tender, no distention, positive bowel sounds subtle ventral abdominal hernia Musculoskeletal: edema present (trace edema in B/L ankles) Neurological: non-focal, moves all 4 limbs Psychiatric: normal affect Deviation from normal: Oriented to person only Skin: normal turgor Deviation from normal: erythematous rash w/ satellite lesions on inner left groin/thigh <Raisa Hernández - Last Filed: 10/04/18 09:22> Dx/Plan (1) CKD (chronic kidney disease), stage II Code(s): N18.2 - CHRONIC KIDNEY DISEASE, STAGE 2 (MILD) Status: Acute (2) Sepsis Code(s): A41.9 - SEPSIS, UNSPECIFIED ORGANISM Status: Acute (3) Coronary artery disease Code(s): I25.10 - ATHSCL HEART DISEASE OF [place] CORONARY ARTERY W/O ANG PCTRS Status: Chronic (4) Hyperlipidemia Code(s): E78.5 - HYPERLIPIDEMIA, UNSPECIFIED Status: Chronic (5) Hypothyroidism Code(s): E03.9 - HYPOTHYROIDISM, UNSPECIFIED Status: Chronic (6) Conjunctivitis Code(s): H10.9 - UNSPECIFIED CONJUNCTIVITIS Status: Acute Qualifiers: Conjunctivitis type: acute Laterality: bilateral (7) Diaper dermatitis Code(s): L22 - DIAPER DERMATITIS Status: Acute - Plan Plan: This is an 83 yo male with a PMH of HLD, hypothyroidism, CKD, and a h/o normal pressure hydrocephalus s/p OTM CONSULTANT shunt placement who presented to the ED w/ a CC of day of decreased PO intake and abdominal distension who was found to have sepsis of an unknown source in the ED. Sepsis likely 2/2 viral infection: - Resolved. - Pt has been on Vanc and Zosyn since 09/30 due to possible infection of unknown source. Will stop antibiotics today as blood and urine cultures showed no growth at 48 hours & procal low at 0.15 suggesting there is a very low likelihood of a serious bacterial infection at this point. Fever was possibly due to a simple viral infection and AMS likely 2/2 narcotics he was receiving at the [place]. - Has remained afebrile for over 48 hours now. - Neurosurgery did not recommend an LP at this time & general surgery did not believe patient had a SBO. AMS - Improved. Patient was conversant and most questions appropriately this AM. Slightly less oriented and perky than her was yesterday but still oriented to person. - Likely 2/2 infection and/or narcotics at [place] but could also be 2/2 due to being somewhere different. - Will continue to monitor closely for any acute changes. - Will continue mechanical soft for now with assistance for each meal. Speech evaluation pending. - Will consider restarting IVFs if PO intake does not improve today. - Will also have patient get OOB and into a chair BID and consult PT. Conjunctivitis: - B/L conjunctival & scleral injection minimal purulent crusting on exam this AM. Patient endorses burning in his eyes consistent with bacterial conjunctivitis. - Will start on antibacterial eye ointment to be given in both eyes Q4H and will request nurses use warm compresses as well to help with discomfort. Diaper Dermatitis: - Erythematous rash in left groin consistent w/ candidal dermatitis. - Will start on nystatin ointment BID. Hypothyroidism - TSH was low at 0.33 on admission. Will adjust home meds accordingly and continue. HLD - Aware, will resume home meds once med rec completed. - Will consider PRNs for SBP >180 until home meds can be confirmed. HTN - Med rec today as BPs have been in the 170s systolic. CKD stage 2 - Appears to be at baseline. - Will continue to monitor w/ QD labs. <Raisa Hernández - Last Filed: 10/04/18 09:22> Attending Addendum - Attending Addendum Date/Time: 10/04/18 1111 I personally evaluated the patient and discussed the management with Dr. Hernández I agree with the History, Examination, Assessment and Plan documented above with any addition or exceptions noted below. Patient sepsis work up has been negative. Procalcitonin done does not indicate infection. Antibiotic was discontinued. Noted to be hypertensive during this hospitalization. Will start with amlodipine with instruction to see PCP for further titration. <Miguel Haynes - Last Filed: 10/04/18 11:28>
[2018-10-04] MEDS ORDERED: Amlodipine 5 MG TAB PO SCH (11:45)
[2018-10-04] MEDS: Bacitracin-Polymyxin B Opth Oint 3.5 GM TUBE EA EYE SCH ×2 (13:14→14:01)
[2018-10-04] MEDS: Enoxaparin Sodium 40 MG/0.4 ML SYRINGE SC SCH (13:57)
[2018-10-04] MEDS: Nystatin Ointment 15 GM TUBE TOP SCH (20:38)
[2018-10-04] MEDS ORDERED: Senokot 8.6 MG TAB PO SCH (21:00)
--- NOTE | 2018-10-05 05:34 | PDOC.FM ---
- Subjective Subjective: Pt states he is doing well today. He denies any complaints. is at bedside and reports in regards to his communication, he is near baseline. - Objective MAR Reviewed: Yes Vital Signs & Weight: Vital Signs (12 hours) Temp Pulse Resp BP Pulse Ox 10/04/18 20:00 98.6 F 66 18 123/69 97 Weight Weight 90.945 kg I&O: 10/03/18 10/04/18 10/05/18 06:59 06:59 06:59 Intake Total 1200 1000 Balance 1200 1000 Result Diagrams: 10/05/18 04:07 10/05/18 04:07 Phys Exam - Physical Examination Constitutional: NAD HEENT: moist MMs Neck: no JVD Respiratory: no wheezing, clear to auscultation bilateral Cardiovascular: RRR, no significant murmur Gastrointestinal: soft, non-tender, no distention, positive bowel sounds Musculoskeletal: pulses present, edema present (+1 pitting edema to mid cao) Neurological: non-focal, normal sensation, moves all 4 limbs Psychiatric: normal affect, A&O x 3 Skin: cap refill <2 seconds Dx/Plan (1) Sepsis Code(s): A41.9 - SEPSIS, UNSPECIFIED ORGANISM Status: Acute (2) CKD (chronic kidney disease), stage II Code(s): N18.2 - CHRONIC KIDNEY DISEASE, STAGE 2 (MILD) Status: Acute (3) Hydrocephalus Code(s): G91.9 - HYDROCEPHALUS, UNSPECIFIED Status: Acute (4) Hyperlipidemia Code(s): E78.5 - HYPERLIPIDEMIA, UNSPECIFIED Status: Chronic (5) Hypothyroidism Code(s): E03.9 - HYPOTHYROIDISM, UNSPECIFIED Status: Chronic - Plan Plan: This is an 83 yo male with a PMH of HLD, hypothyroidismm, CKD, and hydrocephalus Sepsis with unknown source -Resolved -Pt is on Vanc and Zosyn (09/30-10/04) -Blood and urine cultures negative -Afebrile overnight -Neurosurgery does not think an LP is warranted at this time. We will appreciate their recommendations -Continue duonebs PRN wheezing/SOB -WBC are WNL this morning AMS -Improved. Family states he is close to baseline Hypothyroidism -Continue home meds -TSH is 0.33 HLD -Continue home meds CKD stage 2 -Appears at baseline, improving GFR Plan for return to [facility] for rehab today
[2018-10-05 05:39] LABS: #Eosinphils 0.2 thou/uL (0.0-0.7); #Lymphocytes 1.2 thou/uL (1.20-3.40); #Monocytes 0.7 thou/uL (0.11-0.59); #Neutrophils 3.6 thou/uL (1.40-6.50); %Basophils 0.4 % (0.0-1.0); %Lymphocytes 21.3 % (21.0-51.0); %Monocytes 11.6 % (0.0-10.0); %Neutrophils 62.7 % (42.0-75.0); Hemoglobin 11.3 g/dL (14.0-18.0); Mean Corpuscular HGB CONC 35.1 g/dL (32.0-36.0); Mean Corpuscular Hemoglobin 33.5 pg (27.0-31.0); Mean Corpuscular Volume 95.5 fL (78.0-98.0); Mean Platelet Volume 9.2 fL (7.4-10.4); Platelet Count 134 thou/uL (130-400); RBC Distribution Width 12.7 % (11.5-14.5); Red Blood Cell (RBC) Count 3.37 mill/uL (4.70-6.10); White Blood Cell (WBC) Count 5.7 thou/uL (4.8-10.8)
[2018-10-05 06:13] LABS: Anion Gap 11 mmol/L (10-20); BUN (Urea Nitrogen) 12 mg/dL (8.4-25.7); Calc. Creatinine Clearance 80 mL/min (70-130); Calcium 8.3 mg/dL (7.8-10.44); Carbon Dioxide 22 mmol/L (23-31); Chloride 112 mmol/L (98-107); Estimated GFR-MDRD 78; Glucose 92 mg/dL (83-110); Potassium 3.2 mmol/L (3.5-5.1); Sodium 142 mmol/L (136-145)
[2018-10-05] MEDS: Enoxaparin Sodium 40 MG/0.4 ML SYRINGE SC SCH (08:44)
[2018-10-05] MEDS: Sodium Chloride 0.9% 1,000 ML IV SCH (08:44)
[2018-10-05] MEDS: Nystatin Ointment 15 GM TUBE TOP SCH (08:46)
[2018-10-05] MEDS ORDERED: Polyethylene Glycol 3350 17 GM Packet PO SCH (09:00)
[2018-10-05] MEDS ORDERED: Amlodipine 5 MG TAB PO SCH (09:00)
[2018-10-05] MEDS ORDERED: Potassium Chloride 20 MEQ TAB PO SCH (09:30)
--- NOTE | 2018-10-05 12:15 | PRG ---
DATE OF SERVICE: ADDENDUM: This is an addendum to the note of Dr. Michael Thomas. Mr. Sykes is a pleasant 83-year-old man, who was admitted several days ago with altered mental status. This morning, he is much more awake, alert, in no distress. We are awaiting discharge. He had a rather thorough workup with no significant findings of causes of his altered mental status. In the event, clinically, he is vastly improved. Job ID: [id number]
[2018-10-05 17:09] VITALS: BP 144/71; TEMP 98.3
[2018-10-06] MEDS ORDERED: Potassium Chloride 20 MEQ TAB PO SCH (08:00)
--- NOTE | 2018-10-06 14:13 | DIS ---
DATE OF ADMISSION: 09/30/2018 DATE OF DISCHARGE: 10/05/2018 ADMITTING ATTENDING: Greg Harrison MD. DISCHARGE ATTENDING: Greg Harrison MD. RESIDENT: Michael Thomas DO. CONSULTS: Neurosurgery. PROCEDURES PERFORMED: 1. CT of brain without contrast showing interval placement of the right frontal approach ventriculostomy with tip abutting anterior aspect of the septum pellucidum, prominence of ventricular system, no acute intracranial hemorrhage or mass effect. 2. CT of abdomen and pelvis, gastric distention, no acute intraabdominal or intrapelvic findings, nephrolithiasis consisting of single left renal calculus, ventriculoperitoneal shunt catheter, subacute L1 compression fracture, no evidence of small bowel obstruction. 3. Chest x-ray one-view portable , no acute pulmonary findings, ectasia of thoracic aorta. 4. Ectasia of thoracic aorta. PRIMARY DIAGNOSIS: Sepsis, likely secondary to viral infection. SECONDARY DIAGNOSES: 1. Normal pressure hydrocephalus. 2. Hyperlipidemia. 3. Coronary artery disease. 4. Hypothyroidism. 5. Chronic low back pain. 6. Essential tremor. DISCHARGE MEDICATIONS: 1. Amlodipine 5 mg p.o. daily. 2. Tylenol 650 p.o. q.4 hours. 3. Bacitracin apply to each eye q. 4 hours. 4. MiraLax 17 g p.o. daily. 5. Potassium chloride 20 mEq p.o. daily with meals. 6. Vitamin C 1000 mg p.o. b.i.d. 7. Aspirin 81 mg p.o. daily. 8. Atorvastatin 80 mg p.o. at bedtime. 9. Vitamin B12 of 500 mcg p.o. daily. 10. Fish oil 1000 mg p.o. daily. 11. Levothyroxine 125 mcg p.o. daily. 12. Memantine 10 mg p.o. b.i.d. 13. Modafinil 200 mg p.o. daily. 14. Daily vitamin 1 tablet p.o. daily. 15. Protonix 40 mg p.o. b.i.d. 16. Saw palmetto fruit 450 mg p.o. b.i.d. 17. CoQ10 30 mg p.o. b.i.d. 18. Venlafaxine 75 mg p.o. daily. DISCONTINUED MEDICATIONS: None. HISTORY OF PRESENT ILLNESS/HOSPITAL COURSE: An 83-year-old male with past medical history as above, who presents from longterm after 1-day history of decreased p.o. intake and abdominal distention. He also had altered mental status and was not at baseline per family which is walking with walker and talking. On admission, the patient met sepsis criteria, he was started on vancomycin and Zosyn. Neurosurgery saw the patient and deemed lumbar puncture not necessary at that time and followed him during his course. General Surgery was also consulted in the ER and did not believe is small bowel obstruction at this time. The patient received antibiotics for 4 days, white count decreased during that time to baseline. In addition, vital signs remained stable 2 days prior to discharge. At the time of discharge, the patient was back to baseline per family in mentation but with some deconditioning secondary to hospitalization. DISPOSITION: Stable. DISCHARGE INSTRUCTIONS: 1. Location: [facility]. 2. Activity: As tolerated. 3. Diet: Heart healthy. 4. Followup: With primary care physician in 1 to 2 weeks. Job ID: [id number]
== END 2018-10-05 17:35 ==
LOC: ERS 10:49 → T4-A 14:07
PROVIDERS: ADMIT Family Medicine; ATTEND Family Medicine
DX: A41.9 Sepsis, unspecified organism (principal); G91.9 Hydrocephalus, unspecified; E78.5 Hyperlipidemia, unspecified; G25.0 Essential tremor; I12.9 Hypertensive chronic kidney disease with stage 1 through stage 4 chronic kidney disease, or unspecified chronic kidney disease; N18.2 Chronic kidney disease, stage 2 (mild); I25.10 Atherosclerotic heart disease of native coronary artery without angina pectoris; E03.9 Hypothyroidism, unspecified; M54.9 Dorsalgia, unspecified; G89.29 Other chronic pain; Z79.899 Other long term (current) drug therapy
CPT/HCPCS: 51701; 70450; 71045; 74177; 80048 ×5; 80053; 80202; 81003; 83605; 84145; 84443; 85025 ×6; 87040; 87086; 93005; 94640 ×2; 96361 ×7; 96365; 96366 ×4; 96372 ×3; 96375; 97139; 97530 ×2; 99285; G0378 ×3; G8978; G8979; 36415; 96374; G8996-GN-CK; G8997-GN-CI; G8997-GN-CJ; J1650; J2270; J2405; J2543; J3370; J7050; J7620

== ENCOUNTER 2018-10-17 11:20 | Emergency (ER) | payer MEDICARE, BC ==
[2018-10-17 12:15] LABS: #Eosinphils 0.2 thou/uL (0.0-0.7); #Lymphocytes 1.3 thou/uL (1.20-3.40); #Neutrophils 5.8 thou/uL (1.40-6.50); %Basophils 0.5 % (0.0-1.0); %Eosinophils 2.4 % (0.0-10.0); %Lymphocytes 15.2 % (21.0-51.0); %Monocytes 11.5 % (0.0-10.0); %Neutrophils 70.4 % (42.0-75.0); Hemoglobin 12.6 g/dL (14.0-18.0); Mean Corpuscular HGB CONC 34.3 g/dL (32.0-36.0); Mean Corpuscular Hemoglobin 33.6 pg (27.0-31.0); Mean Corpuscular Volume 98.1 fL (78.0-98.0); Mean Platelet Volume 7.5 fL (7.4-10.4); Platelet Count 233 thou/uL (130-400); RBC Distribution Width 13.1 % (11.5-14.5); Red Blood Cell (RBC) Count 3.74 mill/uL (4.70-6.10); White Blood Cell (WBC) Count 8.3 thou/uL (4.8-10.8)
[2018-10-17 12:35] LABS: ALT (SGPT) 24 U/L (8-55); AST (SGOT) 29 U/L (5-34); Albumin 3.7 g/dL (3.4-4.8); Alkaline Phosphatase 186 U/L (40-150); Anion Gap 11 mmol/L (10-20); BUN (Urea Nitrogen) 21 mg/dL (8.4-25.7); Bilirubin, Total 0.8 mg/dL (0.2-1.2); Calc. Creatinine Clearance 0 mL/min (70-130); Calcium 9.1 mg/dL (7.8-10.44); Carbon Dioxide 23 mmol/L (23-31); Chloride 106 mmol/L (98-107); Estimated GFR-MDRD 62; Globulin 3.7 g/dL (2.4-3.5); Glucose 102 mg/dL (83-110); Lipase 41 U/L (8-78); Potassium 4.3 mmol/L (3.5-5.1); Protein, Total 7.4 g/dL (5.8-8.1); Sodium 136 mmol/L (136-145)
--- NOTE | 2018-10-17 13:03 | RAD ---
FRONTAL RADIOGRAPH CHEST: Date: 10/17/18 COMPARISON: 09/30/18. HISTORY: Abdominal pain. FINDINGS: Catheter tubing overlies the right hemithorax, stable. No pneumothorax, pleural fluid, lobar consolid ation, or alveolar edema. There is atherosclerotic calcification in the aortic arch. IMPRESSION: No focal consolidation or alveolar edema. POS: MELISSA
--- NOTE | 2018-10-17 13:49 | CT ---
CT ABDOMEN AND PELVIS WITH IV CONTRAST: Date: 10/17/18 HISTORY: Abdominal pain. COMPARISON: 09/30/18. FINDINGS: There are mild dependent changes in the lung bases. The liver, spleen, pancreas, adrenal glands, and right kidney are normal. Nonobstructing left renal calculus is again seen. No calcified gallstones ar e seen. Gaseous distention noted on the previous study has resolved. No free air, free fluid, or lymphadenopathy seen in the abdomen or pelvis. STEAM BOX HAND shunt catheter remains in place. There is colonic diverticulosis. The small bowel loops are not abnormally dilated. There ar e vascular calcifications without evidence of aneurysmal dilatation of the abdominal aorta. Compressi on fractures are again seen in the spine. IMPRESSION: No acute process. POS: MELISSA
[2018-10-17 14:39] LABS: Bilirubin Negative (Negative); Blood, Urine Negative (Negative); Clarity CLEAR (Clear); Glucose, Urine (Dipstick) Negative (Negative); Leukocyte Negative (Negative); Nitrite Negative (Negative); Protein, Urine (Dipstick) Negative (Neg-Trace); Specific Gravity, Urine 1.031 (1.002-1.036); pH, Urine 7.5 (5.0-9.0)
== END 2018-10-17 16:30 | disposition home or self-care (01) ==
LOC: ERS 11:20
DX: R10.811 Right upper quadrant abdominal tenderness (principal); R10.813 Right lower quadrant abdominal tenderness; I25.10 Atherosclerotic heart disease of native coronary artery without angina pectoris; E03.9 Hypothyroidism, unspecified; E78.5 Hyperlipidemia, unspecified; I10 Essential (primary) hypertension; K21.9 Gastro-esophageal reflux disease without esophagitis
CPT/HCPCS: 36415; 51701; 71045; 74177; 80053; 81003; 83690; 84484; 85025; 93005

== ENCOUNTER 2018-11-04 10:06 | Outpatient (CLI) | payer MEDICARE, BC ==
--- NOTE | 2018-11-04 13:16 | CT ---
HEAD CT WITHOUT CONTRAST: Date: 11/04/18 COMPARISON: 09/30/18. HISTORY: Hydrocephalus, status post shunt placement. TECHNIQUE: Axial CT imaging at 4.5 mm intervals from vertex through skull base without contrast. FINDINGS: There is no significant paranasal sinus opacification. No acute osseous abnormality is noted. Ventric uloperitoneal shunt tube is present, inserted via a right frontal approach, with distal tip terminati ng near the ventral aspect of the septum pellucidum. There is mild diffuse cerebral volume loss with associated prominence of the CSF containing spaces. Fourth ventricle is stable and nondilated. Transverse dimension of the third ventricle measures 1.3 c m, slightly decreased from 1.5 cm on the most recent prior examination. There is mild prominence of the bilateral lateral ventricles, similar when compared to 09/30/18 exami nation and slightly less prominent than on the 08/17/18 examination. There is no intracranial hemorrh age, midline shift, or mass effect. IMPRESSION: Stable head CT when compared to the 09/30/18 examination. POS: REINA
== END 2018-11-04 10:07 | disposition home or self-care (01) ==
LOC: TBSIIMAG 10:06
PROVIDERS: ATTEND Surgery
DX: G91.9 Hydrocephalus, unspecified (principal)
CPT/HCPCS: 70450

== ENCOUNTER 2019-05-02 11:23 | Inpatient (IN) | payer MEDICARE, BC, MEDICAID ==
--- NOTE | 2019-05-02 12:27 | CT ---
CT Brain WO Con History: Altered mental status Comparison: CT brain November 04, 2018 Findings: Similar appearance right transfontanel ventricular shunt from the October examination witho ut progressive hydrocephalus. Moderate atrophy. No hemorrhage. No infarction. No midline shift. Globes are intact. Impression: No acute intracranial abnormality. Similar ventricular size.
[2019-05-02 12:53] LABS: #Eosinphils 0.1 thou/uL (0.0-0.7); #Lymphocytes 1.5 thou/uL (1.20-3.40); #Monocytes 1.2 thou/uL (0.11-0.59); #Neutrophils 5.6 thou/uL (1.40-6.50); %Basophils 0.2 % (0.0-1.0); %Eosinophils 0.7 % (0.0-10.0); %Lymphocytes 17.5 % (21.0-51.0); %Monocytes 13.9 % (0.0-10.0); %Neutrophils 67.7 % (42.0-75.0); Mean Corpuscular HGB CONC 34.1 g/dL (32.0-36.0); Mean Corpuscular Hemoglobin 33.7 pg (27.0-31.0); Mean Corpuscular Volume 98.7 fL (78.0-98.0); Mean Platelet Volume 7.9 fL (7.4-10.4); Platelet Count 159 thou/uL (130-400); RBC Distribution Width 13.1 % (11.5-14.5); Red Blood Cell (RBC) Count 3.57 mill/uL (4.70-6.10); White Blood Cell (WBC) Count 8.3 thou/uL (4.8-10.8)
[2019-05-02 13:01] LABS: Base Excess-Venous -2.6 mmol/L (-2.0 to 3.0); Bicarbonate (HCO3v) 20.7 mmol/L (22.0-28.0); CO2 Tension (PvCO2) 30.3 mmHg (40.0-50.0); Calcium, Ionized 1.04 mmol/L (See Comments:); Chloride 107 mmol/L (98-107); Hemoglobin - Calc 12.1 g/dL (14.0-18.0); Potassium 4.4 mmol/L (3.5-5.1); Sodium 140 mmol/L (138-145); T. Carbon Dioxide 21.6 mmol/L (22.0-28.0)
[2019-05-02 13:16] LABS: ALT (SGPT) 11 U/L (8-55); AST (SGOT) 19 U/L (5-34); Albumin 3.9 g/dL (3.4-4.8); Alkaline Phosphatase 163 U/L (40-150); Anion Gap 12 mmol/L (10-20); BUN (Urea Nitrogen) 23 mg/dL (8.4-25.7); Bilirubin, Total 0.6 mg/dL (0.2-1.2); Calc. Creatinine Clearance 0 mL/min (70-130); Calcium 8.6 mg/dL (7.8-10.44); Carbon Dioxide 23 mmol/L (23-31); Chloride 107 mmol/L (98-107); Estimated GFR-MDRD 54; Globulin 3.2 g/dL (2.4-3.5); Glucose 107 mg/dL (83-110); Potassium 4.4 mmol/L (3.5-5.1); Protein, Total 7.1 g/dL (5.8-8.1); Sodium 138 mmol/L (136-145)
[2019-05-02 13:30] LABS: Bilirubin Negative (Negative); Blood, Urine Negative (Negative); Clarity Clear (Clear); Glucose, Urine (Dipstick) Normal (Negative); Leukocyte Negative Leu/uL (Negative); Nitrite Negative (Negative); Protein, Urine (Dipstick) Negative (Neg-Trace); Urobilinogen Normal mg/dL (Less than 2)
[2019-05-02] MEDS ORDERED: Ondansetron PF 4 MG/2 ML Vial IVP PRN ×2 (15:25→21:28)
[2019-05-02] MEDS ORDERED: HYDROcodone/Acetaminophen 5/325 mg Tablet PO PRN ×2 (15:25)
[2019-05-02] MEDS ORDERED: Ondansetron ODT 4 MG TAB SL PRN (15:25)
[2019-05-02] MEDS ORDERED: Acetaminophen 325 MG TAB PO PRN (15:25)
[2019-05-02 17:48] VITALS: BMI 33.6
[2019-05-02] MEDS ORDERED: Guaifenesin DM 100-10/5 ML UDCUP PO PRN (21:28)
[2019-05-02] MEDS ORDERED: Acetaminophen 650 MG Suppository PR PRN (21:28)
[2019-05-02] MEDS ORDERED: Senokot S 8.6-50 MG TAB PO PRN (21:28)
[2019-05-02] MEDS ORDERED: Bisacodyl 10 MG SUPP PR PRN (21:28)
--- NOTE | 2019-05-02 21:41 | RAD ---
Exam: Chest one view HISTORY:Evaluate for infiltrate. Comparison: 10/17/2018 FINDINGS: Cardiac silhouette:Cardiomegaly. Atherosclerotic aorta. Pulmonary vessels: Normal Costophrenic angles: Clear LUNGS: Diminished lung volume likely due to a poor inspiratory effort. Interstitial prominence likely due to diminished lung volumes. Pneumothorax: None Stable partially visualized ventriculoperitoneal shunt catheter. Osseous abnormalities: None IMPRESSION: No acute cardiopulmonary process.
[2019-05-02] MEDS ORDERED: Carbidopa/Levodopa 25-100 mg Tablet PO SCH (21:45)
[2019-05-02] MEDS: Dextrose 5 % And 0.9 % NaCl 1,000 ML IV SCH (23:34)
--- NOTE | 2019-05-03 02:23 | HP ---
REASON FOR ADMISSION: Acute encephalopathy. HISTORY OF PRESENTING ILLNESS: Please note, majority of this history is obtained by talking to Ms. Caba at [facility] nurse, who takes care of him, ED records, prior medical records as patient is very lethargic and is not oriented. The patient thinks he is in [employer] at present. He has no complaints at present. Per . Gertrudis at [facility], he was very lethargic and was more sleepy from yesterday. He could not eat his breakfast and was falling asleep. He also developed a bit of slurred speech and was feeling dizzy. He is usually very alert and talkative. All of this prompted them to send him to the emergency room here. Currently, the patient is not in any distress. PAST MEDICAL AND SURGICAL HISTORY: He has had a DIET AIDE shunt placed in the month of September for normal-pressure hydrocephalus; dyslipidemia; dementia; hypertension ; dysphagia, currently on mechanical soft diet; depression; hypothyroidism; chronic back pain; history of coronary artery disease; essential tremor; history of cardiac cath with prior stent; appendectomy; carpal tunnel release; bilateral C-spine diskectomy. CURRENT MEDICATIONS: 1. Albuterol nebulizer q.4 hourly p.r.n. 2. Norvasc 5 mg p.o. daily. 3. Aricept 10 mg p.o. daily. 4. Aspirin 81 mg p.o. daily. 5. Lipitor 80 mg p.o. daily. 6. Carbidopa/levodopa 25/100 mg p.o. 1 tab 3 times daily. 7. Colace 100 mg p.o. q.6 hourly p.r.n. 8. CoQ10 30 mg p.o. daily. 9. Effexor Extended Release 75 mg p.o. daily. 10. Fish oil 1000 mg p.o. 3 times daily. 11. Lasix 20 mg p.r.n. for edema. 12. Memantine 10 mg p.o. twice daily. 13. MiraLAX 17 g twice daily. 14. Multivitamin with minerals daily. 15. Pantoprazole 40 mg p.o. daily. 16. Potassium chloride extended release 20 mEq p.o. daily. 17. Saw palmetto twice daily. 18. Synthroid 125 mcg p.o. daily. 19. Vitamin C 500 mg p.o. twice daily. ALLERGIES: NO KNOWN DRUG ALLERGIES. PERSONAL HISTORY: Does not abuse alcohol or drugs and is a resident of [facility]. There is no history of tobacco use per prior records. FAMILY HISTORY: Cannot be obtained as the patient is not oriented. REVIEW OF SYSTEMS: Cannot be obtained as the patient is not oriented. PHYSICAL EXAMINATION: GENERAL: The patient is an 84-year-old male, who is currently not in any acute distress, but is lethargic. VITAL SIGNS: Blood pressure 140/78, pulse 70 per minute, respiratory rate 20 per minute, temperature 98.8 degrees Fahrenheit, saturating 100% on room air. NECK: Supple. No elevated JVD. HEENT: Eyes: Extraocular muscles intact. Pupils reacting to light. Oral Cavity: Mucous membranes are dry. No exudates or congestion. CARDIOVASCULAR SYSTEM: S1 and S2 heard. Regular rhythm. RESPIRATORY SYSTEM: Air entry 1+ bilateral. Scattered rhonchi plus bilateral. ABDOMEN: Soft, bowel sounds heard. No tenderness, rigidity, or guarding. EXTREMITIES: No peripheral edema or calf tenderness. VASCULAR SYSTEM: Peripheral pulses 1+ bilateral. No ischemic ulcerations or gangrene. CENTRAL NERVOUS SYSTEM: No gross focal deficits noted. The patient is lethargic and is not oriented, but follows verbal stimuli. PSYCHIATRIC SYSTEM: No obvious hallucinations or delusions. LABORATORY DATA: White count of 8, H and H 12 and 35, platelet count 159, with 67% neutrophils. Venous blood gas done, shows a pH of 7.44, pCO2 of 30, pO2 of 125, serum bicarb 23, BUN 23, creatinine 1.2, serum glucose 107. Liver enzymes; AST , ALT within normal limits; alkaline phosphatase 163, total bilirubin 0.6, albumin is 3.9. One set of troponin is negative. UA shows no evidence of infection. IMAGING: CT brain without contrast done, shows no acute intracranial abnormality. Stable appearance of right transfrontal ventricular shunt is seen. No hemorrhage or midline shift is seen. Chest x-ray shows no acute cardiopulmonary process. EKG normal sinus rhythm at 71 beats per minute. There is left anterior fascicular block seen with poor R-wave progression. CLINICAL IMPRESSION AND PLAN: The patient will be admitted to medical floor for acute encephalopathy. It is unclear if the patient has aspiration. He has known history of aspiration and is on mechanical soft diet at longterm. Clinically, patient has increased rhonchi and coarse rales suspicious for aspiration. His x -ray has not revealed any gross infiltrate. Blood and urine cultures will be obtained. Echo for LV function. We will obtain Speech evaluation as well. CT chest without contrast will be obtained to rule out pneumonia. We will continue carbidopa/levodopa for Parkinson; Aricept, memantine for dementia; levothyroxine for hypothyroidism; venlafaxine home dose for depression; Norvasc, aspirin for history of CAD. He will be on clear liquid diet until Speech clears him. Echo with 2D Doppler for LV function will be obtained as well. I have discussed and given full updates to Ms. Joy Mesa, the patient's daughter over phone. I have discussed code status with her. She will talk to her other siblings and the patient's as well and let us know if the code status changes. For now, he is a full code. Please note I have seen and examined patient on 04/2019. Job ID: [id number] MTDD
[2019-05-03] MEDS: Levothyroxine Sodium 125 MCG TAB PO SCH (05:05)
[2019-05-03 07:18] LABS: Anion Gap 12 mmol/L (10-20); BUN (Urea Nitrogen) 21 mg/dL (8.4-25.7); Calc. Creatinine Clearance 62 mL/min (70-130); Calcium 8.5 mg/dL (7.8-10.44); Carbon Dioxide 23 mmol/L (23-31); Chloride 107 mmol/L (98-107); Estimated GFR-MDRD 56; Glucose 96 mg/dL (83-110); Potassium 3.9 mmol/L (3.5-5.1); Sodium 138 mmol/L (136-145)
[2019-05-03 07:22] LABS: Hemoglobin 10.9 g/dL (14.0-18.0); Mean Corpuscular HGB CONC 34.3 g/dL (32.0-36.0); Mean Corpuscular Hemoglobin 33.8 pg (27.0-31.0); Mean Corpuscular Volume 98.5 fL (78.0-98.0); RBC Distribution Width 13.1 % (11.5-14.5); Red Blood Cell (RBC) Count 3.21 mill/uL (4.70-6.10); White Blood Cell (WBC) Count 6.5 thou/uL (4.8-10.8)
[2019-05-03 08:01] LABS: #Eosinphils 0.2 thou/uL (0.0-0.7); #Lymphocytes 1.6 thou/uL (1.20-3.40); #Monocytes 0.9 thou/uL (0.11-0.59); #Neutrophils 3.6 thou/uL (1.40-6.50); %Neutrophils 56.8 % (42.0-75.0)
[2019-05-03 08:02] LABS: MDiff Complete? YES; Ovalocytes SLIGHT = 2-5 cells (100X) (0-1/hpf); Platelet Clumps SLIGHT; Platelet Morphology Comment PLT clumps seen-ADEQ; Polychromasia SLIGHT = 2-3 cells (100X) (0-2/hpf)
[2019-05-03] MEDS: Donepezil HCl 10 MG TAB PO SCH (08:03)
[2019-05-03] MEDS: Aspirin 81 mg Enteric Coated Tablet PO SCH (08:04)
[2019-05-03] MEDS: Famotidine 20 MG TAB PO SCH ×2 (08:04→21:49)
[2019-05-03] MEDS: Amlodipine 5 MG TAB PO SCH (08:04)
[2019-05-03] MEDS: Venlafaxine HCl XR 75 MG CAP PO SCH (08:05)
[2019-05-03] MEDS: Carbidopa/Levodopa 25-100 mg Tablet PO SCH ×3 (08:06→21:49)
[2019-05-03] MEDS: Polyethylene Glycol 3350 17 GM Packet PO SCH (08:07)
[2019-05-03] MEDS ORDERED: Enoxaparin Sodium 40 MG/0.4 ML SYRINGE SC SCH (09:00)
--- NOTE | 2019-05-03 11:14 | CT ---
Exam: Chest CT without contrast HISTORY: Decreased lung volume. Evaluate for infiltrate. Comparison 08/17/2018 FINDINGS: Limited evaluation of the mediastinum due to the lack of IV contrast. No mass, lymphadenopathy or hem atoma. Heart size is within normal limits. No pericardial effusion There are coronary calcifications Visualized aorta has a normal minimal left Visualized solid organs are grossly unremarkable. No lytic or blastic lesions with regards to the osseous structures Trachea and central bronchi are patent. Dependent atelectatic changes. No significant pleural fluid o r pneumothorax Right lung: No masses or consolidation. Chronic changes and groundglass opacities are noted Left lung: No masses or consolidation. Chronic changes and groundglass opacities are noted IMPRESSION: 1. Chronic lung parenchymal changes. 2. Basilar opacities are noted and may be due to edema.
[2019-05-03] MEDS: Cyanocobalamin (Vitamin B-12) 1,000 MCG TAB PO SCH (12:46)
[2019-05-03] MEDS: Dextrose 5 % And 0.9 % NaCl 1,000 ML IV SCH (16:56)
--- NOTE | 2019-05-03 20:58 | PRG ---
DATE OF SERVICE: 05/03/2019 SUBJECTIVE: An 84-year-old male with hypertension, dementia, swallow dysfunction, and normal-pressure hydrocephalus, status post VIOLIN MAKER HAND shunt, [facility] with altered mentation and lethargy. He had a chest x-ray, that was negative for infiltrate. He underwent a chest CT without contrast, that showed bibasilar opacities, that may be due to edema per radiologist. His mentation somewhat improved earlier today. Per nurses report, he ate his lunch without significant difficulty. He was evaluated by Speech Therapy and has been placed on mechanical soft with extra sauce, gravy. At the time of my evaluation , he is somnolent; however, he is very easily arousable. He denies any pain. There was no new focal neurologic deficit or seizure reported. REVIEW OF SYSTEMS: Limited due to current mentation. CURRENT MEDICATIONS: Reviewed. The patient is on IV fluids with amlodipine, aspirin, Lipitor, carbidopa, vitamin B12, Aricept, Lovenox, levothyroxine, Namenda, Protonix, MiraLAX, and Effexor. OBJECTIVE: VITAL SIGNS: Temperature 97.4, pulse rate of 59, respiration 20, blood pressure of 128/67, O2 saturation of 95% on room air. Intake of 2320, output unavailable. GENERAL: An 84-year-old man, in no significant distress. LUNGS: Show diminished air entry at bilateral bases with some rhonchi. HEART: S1, S2 present. Regular rate and rhythm. No rubs or gallops appreciated. ABDOMEN: Soft, obese. Bowel sounds present. EXTREMITIES: No edema, calf tenderness. NEUROLOGY: The patient is spontaneously moving all 4 extremities on verbal commands. There is no focal weakness noted. PSYCHIATRY: As discussed above. LYMPH NODE: No palpable lymph nodes in the neck. Peripheral vascular radial pulses palpable bilaterally. MUSCULOSKELETAL: No joint swelling tenderness. LABORATORY FINDINGS: WBC 6.5 with hemoglobin 10.9, hematocrit 31.6, platelet count unavailable due to clumping. VBG showed pH of 7.44 with pCO2 of 30.3, pO2 of 125, bicarbonate of 21. Chemistry showed sodium 138, potassium 3.9, chloride 107, bicarb 23, BUN 21, creatinine 1.23. Urinalysis was negative for WBC bacteria. Blood cultures negative. Urine culture negative so far. Chest CT by my review as discussed above. Chest x-ray by my review was negative for infiltrate. CT scan of the brain by my review was negative for acute findings. IMPRESSION: 1. Toxic metabolic encephalopathy of unclear etiology. 2. ?Aspiration - CT chest negative. 3. Normal-pressure hydrocephalus, status post VIOLIN MAKER HAND shunt placement in August 2018. 4. Parkinson disease with primary progressive freezing gait and cognitive dysfunction followed by Dr. Pagan at [facility] as well as movement disorder specialist, Dr. Edwin Anderson. 5. Hypothyroidism. 6. Gastroesophageal reflux disease. 7. Coronary artery disease. 8. Obesity with a BMI of 33.6. 9. Chronic kidney disease stage 3. 10. Chronic anemia, macrocytic. PLAN: The patient will continue to be monitored on the medical floor. Exact etiology of altered mentation appears to be unclear. Probably due to worsening Parkinson disease. Neurology consult will be placed. We will continue Sinemet 50/200 one tablet 3 times a day. We will also continue other home medications. Lovenox for DVT prophylaxis. We will recheck labs in a.m. We will check vitamin B12, folic acid. Plan was discussed with the patient and the family in detail, they stated understanding. Job ID: [id number] MTDD
[2019-05-03] MEDS: Atorvastatin Calcium 40 MG TAB PO SCH (21:48)
[2019-05-04] MEDS: Levothyroxine Sodium 125 MCG TAB PO SCH (05:24)
[2019-05-04 06:03] LABS: ALT (SGPT) Less than 7 U/L (8-55); AST (SGOT) 19 U/L (5-34); Albumin 3.7 g/dL (3.4-4.8); Alkaline Phosphatase 142 U/L (40-150); Anion Gap 14 mmol/L (10-20); BUN (Urea Nitrogen) 16 mg/dL (8.4-25.7); Bilirubin, Total 0.7 mg/dL (0.2-1.2); Calc. Creatinine Clearance 69 mL/min (70-130); Calcium 8.8 mg/dL (7.8-10.44); Carbon Dioxide 23 mmol/L (23-31); Chloride 108 mmol/L (98-107); Estimated GFR-MDRD 64; Globulin 3.4 g/dL (2.4-3.5); Glucose 96 mg/dL (83-110); Magnesium 1.9 mg/dL (1.6-2.6); Phosphorus 3.6 mg/dL (2.3-4.7); Potassium 3.5 mmol/L (3.5-5.1); Protein, Total 7.1 g/dL (5.8-8.1); Sodium 141 mmol/L (136-145)
[2019-05-04 06:35] LABS: Folate (Folic Acid) 5.5 ng/mL (7.0-31.4)
[2019-05-04 07:25] LABS: Band 5 % (5-11); Eosinophils 5 % (0-10); Hemoglobin 11.6 g/dL (14.0-18.0); Lymphocytes 24 % (21-51); Mean Corpuscular Hemoglobin 33.5 pg (27.0-31.0); Mean Corpuscular Volume 98.4 fL (78.0-98.0); Monocytes 11 % (0-10); Neutrophil 55 % (42-75); Red Blood Cell (RBC) Count 3.45 mill/uL (4.70-6.10); White Blood Cell (WBC) Count 4.9 thou/uL (4.8-10.8)
[2019-05-04 07:50] LABS: MDiff Complete? YES; Macrocytosis SLIGHT = 6-15 cells (100X) (0-5/hpf); Mean Corpuscular HGB CONC 34.1 g/dL (32.0-36.0); Mean Platelet Volume 10.4 fL (7.4-10.4); Platelet Clumps SLIGHT; Platelet Count 100 thou/uL (130-400); RBC Distribution Width 12.7 % (11.5-14.5)
[2019-05-04] MEDS: Polyethylene Glycol 3350 17 GM Packet PO SCH (08:15)
[2019-05-04] MEDS: Folic Acid 1 MG TAB PO SCH (08:16)
[2019-05-04] MEDS: Venlafaxine HCl XR 75 MG CAP PO SCH (08:16)
[2019-05-04] MEDS: Carbidopa/Levodopa 25-100 mg Tablet PO SCH ×3 (08:16→20:05)
[2019-05-04] MEDS: Aspirin 81 mg Enteric Coated Tablet PO SCH (08:16)
[2019-05-04] MEDS: Donepezil HCl 10 MG TAB PO SCH (08:16)
[2019-05-04] MEDS: Multivit, Therapeutic 1 TAB PO SCH (08:17)
[2019-05-04] MEDS: Famotidine 20 MG TAB PO SCH ×2 (08:17→20:05)
[2019-05-04] MEDS: Cyanocobalamin (Vitamin B-12) 1,000 MCG TAB PO SCH (08:17)
[2019-05-04] MEDS: Amlodipine 5 MG TAB PO SCH (08:17)
[2019-05-04] MEDS ORDERED: Cyanocobalamin (Vitamin B-12) 1,000 MCG TAB PO SCH (09:00)
[2019-05-04] MEDS: Dextrose 5 % And 0.9 % NaCl 1,000 ML IV SCH (12:37)
[2019-05-04] MEDS ORDERED: Dextrose 5 % And 0.9 % NaCl 1,000 ML IV SCH (18:09)
[2019-05-04] MEDS: Atorvastatin Calcium 40 MG TAB PO SCH (20:05)
--- NOTE | 2019-05-04 21:52 | PRG ---
DATE OF SERVICE: 05/04/2019 SUBJECTIVE: An 84-year-old male with Parkinson disease, normal-pressure hydrocephalus status post CHIEF DIGITAL OFFICER shunt, hypertension, and dementia, was brought in from [facility] with altered mentation and lethargy. The patient's mentation is gradually improving. However, he continues to have intermittent confusion. He is currently on modified diet per speech therapy. He is sitting on the edge of the bed. No overnight events reported. REVIEW OF SYSTEMS: The patient denies any chest pain, shortness of breath, palpitations. CURRENT MEDICATIONS: Reviewed. The patient is on all of his home medications including carbidopa/levodopa, Namenda, Aricept, amlodipine, aspirin, Lipitor. OBJECTIVE: VITAL SIGNS: The patient is afebrile with pulse rate 79, respirations of 18, blood pressure of 126/70, O2 saturation 96% on room air. Intake of 2320, output unavailable. GENERAL: An 84-year-old male, in no apparent distress. Appears comfortable. LUNGS: Clear to auscultation bilaterally with diminished air entry at bases. HEART: S1, S2 present, regular. ABDOMEN: Soft. Bowel sounds present. EXTREMITIES: No edema or calf tenderness. NEUROLOGY: Grossly nonfocal. The patient follows commands appropriately most of the time. PSYCHIATRY: As discussed above. LABORATORY FINDINGS: WBC 4.9 with platelet count of 100, hemoglobin 11.6, hematocrit 33.9. Vitamin B12 of 382, folic acid 5.5. Sodium 141, potassium 3.5, chloride 108, bicarb 23, BUN 16, creatinine 1.10. Blood culture and urine culture are negative. Echocardiogram showed left ventricular ejection fraction 60% to 65% with diastolic dysfunction, mild mitral regurgitation, mild aortic regurgitation. IMPRESSION: 1. Toxic metabolic encephalopathy, suspected to be secondary to advanced Parkinson disease with dementia. 2. 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 Whiteside at [facility] as well as movement disorder specialist, Dr. Edwin Anderson. 3. Hypothyroidism. 4. History of normal-pressure hydrocephalus, status post CHIEF DIGITAL OFFICER shunt in August 2018. 5. Hypothyroidism. 6. Gastroesophageal reflux disease. 7. Coronary artery disease. 8. Obesity with a BMI of 33.6. 9. Chronic macrocytic anemia, probably due to folic acid deficiency. 10. Low normal vitamin B12. 11. Chronic kidney disease stage 3. 12. Thrombocytopenia. PLAN: The plan was extensively discussed with the son and the spouse at the bedside. I also discussed with his primary neurologist, Dr. Pagan. Dr. Pagan does not have any new recommendations. Dr. Azevedo is evaluating the patient today. His symptoms are probably due to advanced Parkinson disease with dementia. We will add folic acid supplementation. We will also increase vitamin B12 supplementation. Due to thrombocytopenia, we will hold Lovenox. We will recheck platelets in a.m. Disposition probably in 24 to 48 hours if mentation remained stable. Job ID: [id number]
--- NOTE | 2019-05-04 23:30 | CON ---
DATE OF CONSULTATION: 05/04/2019 CONSULTING PHYSICIAN: Hospitalist Service. IMPRESSION: Progressive neurologic decline suggestive of a primary brain degenerative process. He appears to have failed treatment for normal-pressure hydrocephalus. We may be dealing with a Lewy body dementia, although it is a bit difficult to tell at this point. So workup otherwise has been negative for an explanation of his condition. PLAN: Seroquel 25 mg at night for hallucinations and agitation. HISTORY OF PRESENT ILLNESS: Mr. Sykes is an 84-year-old man who has had a progressive neurologic decline over the last year or more. His reports he was able to walk with a walker last year, but steadily worsened. He apparently also developed incontinence and some cognitive decline. He was having some delusional thoughts and hallucinations. He underwent shunting last August. Despite the shunt, his gait did not improve. He currently is wheelchair bound. They have moved into a fpc due to the fact his could not care for him. She reports that he seemed to get much more lethargic and was sleeping more than normal. He would not eat, and so they decided to bring him to the hospital. Since admission, he had a CT of the chest, which was unremarkable other than some basilar fluid. His CT of the brain showed a shunt in place without subdural hematoma and some diffuse atrophy. His lab work showed mildly low folate level, but normal B12, CBC, chemistry, and urinalysis. His vital signs have been stable since admission. There has been no fever. He is placed on IV fluids. He has been a bit more alert today according to his . Dr. Pagan at [facility] was contacted. Apparently, they tried him on Sinemet to see if it improved his physical state, but it was not a significant improvement. PAST MEDICAL HISTORY: Past history otherwise unremarkable. ALLERGIES: NONE REPORTED. SOCIAL HISTORY: No tobacco or alcohol use. FAMILY HISTORY: Noncontributory. REVIEW OF SYSTEMS: Not obtainable due to his dementia. PHYSICAL EXAMINATION: GENERAL: He is a well-nourished elderly man, lying in bed, in no distress. VITAL SIGNS: Stable. He is afebrile. HEENT: Pupils are equal. Conjunctivae are clear. Oropharynx is clear. NECK: No lymphadenopathy. EXTREMITIES: No cyanosis or edema. NEUROLOGIC: He awakened and was conversant. He was only oriented to person. He followed some commands for me. His speech was fluent. Cranial nerves appear to be intact. Motor exam showed good pl sql developer strength bilaterally. Rapid alternating movements were symmetric and at normal pace. No tremor or other abnormal movements were seen. Gait was not testable. Sensation was intact to touch. SUMMARY: This is an elderly gentleman with progressive dementia and physical decline over the last few months. He did not respond to shunting. I do not see any significant Parkinson's features on exam. It is possible, he is suffering from progressive dementia like Lewy body. There is not much I can see to offer him, otherwise. He did not have an advanced directive for long-term care. I suspect he will have to go back to the fpc for care. Job ID: [id number]
[2019-05-05] MEDS: Acetaminophen 325 MG TAB PO PRN ×2 (00:18→19:55)
[2019-05-05] MEDS: CEFAZOLIN 2 GM in Premix Bag 1 BAG IVPB SCH ×4 (00:45→23:52)
[2019-05-05] MEDS: Levothyroxine Sodium 125 MCG TAB PO SCH (05:01)
[2019-05-05] MEDS: Nystatin Powder 15 GM BOT TOP PRN (05:02)
[2019-05-05 07:06] LABS: Hemoglobin 11.4 g/dL (14.0-18.0); Platelet Count 119 thou/uL (130-400)
[2019-05-05] MEDS: Multivit, Therapeutic 1 TAB PO SCH (08:49)
[2019-05-05] MEDS: Aspirin 81 mg Enteric Coated Tablet PO SCH (08:49)
[2019-05-05] MEDS: Venlafaxine HCl XR 75 MG CAP PO SCH (08:49)
[2019-05-05] MEDS: Folic Acid 1 MG TAB PO SCH (08:49)
[2019-05-05] MEDS: Donepezil HCl 10 MG TAB PO SCH (08:49)
[2019-05-05] MEDS: Cyanocobalamin (Vitamin B-12) 1,000 MCG TAB PO SCH (08:49)
[2019-05-05] MEDS: Carbidopa/Levodopa 25-100 mg Tablet PO SCH ×3 (08:49→19:56)
[2019-05-05] MEDS: Amlodipine 5 MG TAB PO SCH (08:49)
[2019-05-05] MEDS: Famotidine 20 MG TAB PO SCH ×2 (08:49→19:54)
[2019-05-05] MEDS: Polyethylene Glycol 3350 17 GM Packet PO SCH (08:50)
--- NOTE | 2019-05-05 15:34 | PRG ---
DATE OF SERVICE: 05/05/2019 SUBJECTIVE: An 84-year-old male with Parkinson disease, dementia, hypertension , and normal-pressure hydrocephalus, status post PRODUCT GRADER shunt, currently residing at [facility], was brought in with altered mentation and lethargy. No etiology was identified for altered mentation. His mentation is gradually improving with conservative measures. He was evaluated by Neurology, Dr. Henderson. The case was also discussed with the patient's primary neurologist, Dr. Pagan. The patient denies any new complaints at this time. No fevers, chills, or headache reported. REVIEW OF SYSTEMS: No fever, chills, shortness of breath, chest pain, nausea, or vomiting reported. CURRENT MEDICATIONS: Reviewed. He was started on Ancef last night for one of two blood cultures. Otherwise, he is on his same home medications. OBJECTIVE: VITAL SIGNS: Temperature 97.9, pulse 66, respirations 20, blood pressure of 145/62, and O2 saturation 97% on room air. Intake of 2320, output unavailable. GENERAL: An 84-year-old male in no apparent distress. LUNGS: Clear to auscultation bilaterally. No wheezing, rales, or rhonchi. HEART: S1, S2 present. Regular rate and rhythm. ABDOMEN: Soft. Bowel sounds present. EXTREMITIES: No edema or calf tenderness. NEUROLOGIC: Unchanged. LABORATORY FINDINGS: CBC showed WBC 6, hemoglobin 11.4, hematocrit 34.5, and platelets 119. Blood culture, one of two showed coagulase-negative staphylococcus. Urine culture negative. Echocardiogram showed ejection fraction of 60% to 65% with diastolic dysfunction , mild mitral regurgitation, and mild aortic regurgitation. IMPRESSION: 1. Toxic metabolic encephalopathy of unclear etiology, probably secondary to advanced Parkinson disease with dementia. 2. One of two blood cultures positive for coagulase-negative staphylococcus. 3. 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 Pagan at [facility] as well as movement disorder specialist. 4. Hypothyroidism. 5. History of normal pressure hydrocephalus, status post ventriculoperitoneal shunt. 6. Coronary artery disease. 7. Chronic macrocytic anemia. 8. Folic acid deficiency. 9. Low normal vitamin B12. 10. Chronic kidney disease, stage 3. 11. Thrombocytopenia. Lovenox is currently on hold due to this reason. 12. Gastroesophageal reflux disease. PLAN: Infectious Disease has been consulted for bacteremia. Repeat blood cultures have been sent. We will continue Ancef for now. We will continue other medications, which are pretty much his home medications. Continue Physical Therapy and Occupational Therapy evaluation. Plan was discussed with the patient and the spouse at the bedside. They stated understanding. Job ID: [id number] MTDD
[2019-05-05 16:35] LABS: Syphilis Antibody Nonreactive (Nonreactive); Syphilis Antibody Index 0.12 S/CO (<1.00 Non-Reactive)
--- NOTE | 2019-05-05 18:36 | CON ---
DATE OF CONSULTATION: 05/05/2019 REASON FOR CONSULTATION: Altered mental status. HISTORY OF PRESENT ILLNESS: An 84-year-old with a history of normal-pressure hydrocephalus and REPAIR ARMATURE WINDER HELPER shunt, cognitive dysfunction, and coronary artery disease, who is a senior care resident. The patient was referred to the emergency room because of being found lethargic and had been no reported fever or chills. No cough. No aspiration. No diarrhea. No genitourinary symptoms. He had not fallen. He was brought in to the emergency room on May 02 and initial findings temperature 98.8 , O2 saturation 100, respiratory rate 21, pulse 70, and BP 140/70. He remained afebrile in the emergency room. Initial exam was not particularly remarkable. Little better redness in the conjunctiva in the right eye and dry blood in the left nare. There was edema in lower extremities. He appeared oriented to person and place with limited speech. Neurology was consulted and they felt that probably had a primary brain degenerative process. The possibility of Lewy body dementia was considered. Currently, Mr. Sykes is awake, he seems to be back to baseline. Again, knows his name and knows where he is, but could not tell me the date and recognized his . All other review of system was negative. 10-point review of system as above. PAST MEDICAL HISTORY: Normal-pressure hydrocephalus with REPAIR ARMATURE WINDER HELPER shunt, coronary artery disease, dyslipidemia, cognitive dysfunction, hypertension, dysphagia on mechanical soft diet, hypothyroidism, back pain, ischemic cardiomyopathy, prior stent, appendectomy, and carpal tunnel release. ALLERGIES: NONE. SOCIAL HISTORY: Never smoker. Resident at [facility]. FAMILY HISTORY: Noncontributory. CURRENT MEDICATIONS: 1. Tylenol. 2. DuoNeb. 3. Norvasc. 4. Ecotrin. 5. Lipitor. 6. Bacitracin. 7. Cefazolin. 8. Aricept. 9. Pepcid. 10. Synthroid. 11. Namenda. 12. MiraLAX. 13. Venlafaxine. 14. Quetiapine. PHYSICAL EXAMINATION: VITAL SIGNS: T-max 99.1, BP 140/60, pulse 66, respirations 18 to 20, and O2 saturation 97. SKIN: No skin breakdown. Peripheral IV access. He is voiding in the diaper. HEENT: Ocular movements conjugate. Sclerae white. Pupils are equal. No lymphadenopathy. Oral cavity with still few teeth remaining in place. NECK: Stiff to all directions. No jugular vein distention. No thyromegaly. LUNGS: Symmetric air entry without crackles or wheezing. HEART: S1 and S2. Regular rate. Soft aortic murmur. ABDOMEN: Soft, not distended or tender. No ascites. Question of bladder distention. There was tenderness in the right upper quadrant and epigastric area in the abdominal examination. EXTREMITIES: No osteoarthrosis in knees and ankles. Pulses 1+ in dorsalis pedis. No edema. Plantar response are flexor. No clonus. LABORATORY DATA: White cell count 8.3 and 6, hemoglobin 11.4, platelets are down from 159 to 119, and 11% monocytes. A pH of 7.4, pCO2 of 30, and pO2 of 125. This is arterial gas obviously. Although it is labeled as venous. Chemistry was normal except for alkaline phosphatase 163 in the first sample, the second was normal 142 and chloride 108. Folate was low at 5.5, vitamin B12 was 382. Creatinine normal. Reports echocardiogram normal EF, diastolic dysfunction. Valves are pretty unremarkable. Brain CT, no acute intracranial abnormality. Chest, no acute cardiopulmonary process. Chest CT chronic lung parenchymal changes, bibasilar opacities noted. ASSESSMENT: 1. REPAIR ARMATURE WINDER HELPER shunt for normal-pressure hydrocephalus. 2. Progression of cognitive dysfunction. 3. Coronary artery disease. 4. Altered mental status. 5. Macrocytic anemia. 6. Thrombocytopenia. 7. Abdominal tenderness, epigastric and right upper quadrant area. DISCUSSION: The differential diagnosis includes decline of his underlying chronic degenerative DIRECTOR OF PULMONARY UNIT disorder as mentioned by Dr. Henderson. Possibility of associated Parkinson disease with on and off phenomena associated with the use of Sinemet. Possible associated micronutrient deficiency, which he does have folic acid deficiency. May have other associated deficiencies and would check his thiamine level and other micronutrients. Also possibility of drug associated fluctuations in his mental state is to be considered since he is on a number of psychotropic medications he does not appear that at this point there is evidence to suggest inflammatory process, although I would at least check his right upper quadrant ultrasound to evaluate his gallbladder and also his bladder to make sure he is emptying properly. Job ID: [id number] [facility]
[2019-05-05] MEDS: Atorvastatin Calcium 40 MG TAB PO SCH (19:56)
[2019-05-06] MEDS: Levothyroxine Sodium 125 MCG TAB PO SCH (05:29)
--- NOTE | 2019-05-06 08:18 | ULT ---
GALLBLADDER ULTRASOUND: CLINICAL HISTORY: Right upper quadrant pain. FINDINGS: There is no focal hepatic lesion or acute gallbladder pathology. The common duct is normal measuring 4 mm in diameter. No ascites. IMPRESSION: 1. No acute gallbladder pathology. 2. Minimal nodularity of the hepatic contour related to a cirrhotic morphology. Correlate clinicall y. POS: REYNA
[2019-05-06] MEDS: CEFAZOLIN 2 GM in Premix Bag 1 BAG IVPB SCH (09:27)
[2019-05-06] MEDS: Amlodipine 5 MG TAB PO SCH (10:25)
[2019-05-06] MEDS: Folic Acid 1 MG TAB PO SCH (10:25)
[2019-05-06] MEDS: Aspirin 81 mg Enteric Coated Tablet PO SCH (10:25)
[2019-05-06] MEDS: Famotidine 20 MG TAB PO SCH ×2 (10:26→20:15)
[2019-05-06] MEDS: Multivit, Therapeutic 1 TAB PO SCH (10:26)
[2019-05-06] MEDS: Cyanocobalamin (Vitamin B-12) 1,000 MCG TAB PO SCH (10:26)
[2019-05-06] MEDS: Carbidopa/Levodopa 25-100 mg Tablet PO SCH ×3 (10:26→20:15)
[2019-05-06] MEDS: Venlafaxine HCl XR 75 MG CAP PO SCH (10:26)
[2019-05-06] MEDS: Donepezil HCl 10 MG TAB PO SCH (10:27)
[2019-05-06] MEDS: Nystatin Powder 15 GM BOT TOP PRN ×2 (10:28)
[2019-05-06] MEDS: Polyethylene Glycol 3350 17 GM Packet PO SCH (10:35)
--- NOTE | 2019-05-06 15:44 | PDOC.PN ---
- Subjective Encounter Start Date: 05/06/19 Encounter Start Time: 09:00 -: non-verbal Patient seen and examined for AMS. Somnolent after Seroquel. No overnight events - Objective Resuscitation Status - Order Detail: 05/02/19 21:18 Resuscitation Status Routine Resuscitation Status: FULL: Full Resuscitation MAR Reviewed: Yes Vital Signs & Weight: Vital Signs (12 hours) Temp Pulse Resp BP BP Pulse Ox 05/06/19 14:06 62 16 98 05/06/19 11:18 98.5 F 62 16 131/67 98 05/06/19 10:46 56 L 16 97 05/06/19 10:25 60 143/82 H 05/06/19 09:35 100 05/06/19 08:00 97.7 F 60 14 143/82 H 99 05/06/19 07:13 55 L 14 99 05/06/19 07:12 97.7 F 60 20 143/82 H 95 05/06/19 04:00 97.6 F 55 L 18 137/70 Weight Weight 208 lb 7 oz Result Diagrams: 05/05/19 06:39 05/04/19 04:35 Radiology Reviewed by me: No (RUQ USG - Neg, ?cirrhosis) Phys Exam - Physical Examination Constitutional: NAD Respiratory: no wheezing, no rhonchi Cardiovascular: RRR, no rub Gastrointestinal: soft, non-tender, positive bowel sounds Musculoskeletal: no edema Dx/Plan - Plan DVT proph w/SCDs IMPRESSION: 1. Toxic metabolic encephalopathy of unclear etiology, probably secondary to advanced Parkinson disease with dementia. 2. 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 Pagan. 3. Folic acid deficiency. 4. Hypothyroidism. 5. History of normal pressure hydrocephalus, status post TAPE KELLER OPERATOR shunt. 6. Coronary artery disease. 7. Chronic macrocytic anemia. 8. Gastroesophageal reflux disease. 9. Low normal vitamin B12. 10. Chronic kidney disease, stage 3. 11. Thrombocytopenia. 12. One of two blood cultures positive for coagulase-negative staphylococcus. Contaminant per ID PLAN: DC Atbx - I confirmed with Dr Markel Sequeira Sinemet Hold Seroquel due to increase somnolence Cont other meds as below Lovenox is currently on hold due to thrombocytopenia AM labs Review of Systems - Review of Systems Other: Cannot obtain due to current mentation - Medications/Allergies Allergies/Adverse Reactions: Allergies Allergy/AdvReac Type Severity Reaction Status Date / Time No Known Allergies Allergy Verified 09/10/18 11:33 Medications: Current Medications Acetaminophen (Tylenol) 650 mg PO Q4H PRN PRN Reason: Headache/Fever/Mild Pain (1-3) Last Admin: 05/05/19 19:55 Dose: 650 mg Acetaminophen (Tylenol) 650 mg VA Q4H PRN PRN Reason: Headache/Fever/Mild Pain (1-3) Albuterol/Ipratropium (Duoneb) 3 ml NEB Q2H PRN PRN Reason: SOB &/or Wheezing Albuterol/Ipratropium (Duoneb) 3 ml NEB [id number] [facility] Last Admin: 05/06/19 14:06 Dose: 3 ml Amlodipine Besylate (Norvasc) 5 mg PO DAILY [facility] Last Admin: 05/06/19 10:25 Dose: 5 mg Aspirin (Ecotrin) 81 mg PO DAILY [facility] Last Admin: 05/06/19 10:25 Dose: 81 mg Atorvastatin Calcium (Lipitor) 80 mg PO HS [facility] Last Admin: 05/05/19 19:56 Dose: 80 mg Bacitracin (Bacitracin) 1 gm EA EYE Q4HR [facility] Last Admin: 05/06/19 13:35 Dose: 1 applic Bisacodyl (Dulcolax) 10 mg VA DAILYPRN PRN PRN Reason: Constipation Carbidopa/Levodopa (Sinemet 25-100) 2 tab PO TID [facility] Last Admin: 05/06/19 14:30 Dose: 2 tab Cyanocobalamin (Vitamin B-12) 1,000 mcg PO DAILY [facility] Last Admin: 05/06/19 10:26 Dose: 1,000 mcg Donepezil HCl (Aricept) 10 mg PO DAILY [facility] Last Admin: 05/06/19 10:27 Dose: 10 mg Famotidine (Pepcid) 20 mg PO BID [facility] Last Admin: 05/06/19 10:26 Dose: 20 mg Folic Acid (Folvite) 1 mg PO DAILY [facility] Last Admin: 05/06/19 10:25 Dose: 1 mg Guaifenesin/Dextromethorphan (Robitussin Dm) 15 ml PO Q4H PRN PRN Reason: Cough Levothyroxine Sodium (Synthroid) 125 mcg PO 0600 [facility] Last Admin: 05/06/19 05:29 Dose: 125 mcg Memantine (Namenda) 10 mg PO BID [facility] Last Admin: 05/06/19 10:25 Dose: 10 mg Multivitamins (Theragran) 1 tab PO DAILY [facility] Last Admin: 05/06/19 10:26 Dose: 1 tab Nystatin (Mycostatin Powder) 0 gm TOP PRN PRN PRN Reason: Rash/Topical Irritation Last Admin: 05/06/19 10:28 Dose: 1 applic Ondansetron HCl (Zofran) 4 mg IVP Q6H PRN PRN Reason: Nausea/Vomiting Pantoprazole Sodium (Protonix) 40 mg PO BID [facility] Last Admin: 05/06/19 10:24 Dose: 40 mg Polyethylene Glycol (Miralax) 17 gm PO DAILY [facility] Last Admin: 05/06/19 10:35 Dose: Not Given Quetiapine Fumarate (Seroquel) 25 mg PO QPM [facility] Last Admin: 05/05/19 19:54 Dose: 25 mg Senna/Docusate Sodium (Senokot S) 2 tab PO BID PRN PRN Reason: Constipation Sodium Chloride (Flush - Normal Saline) 10 ml IVF Q12HR [facility] Last Admin: 05/06/19 09:29 Dose: 10 ml Sodium Chloride (Flush - Normal Saline) 10 ml IVF PRN PRN PRN Reason: Saline Flush Venlafaxine HCl (Effexor Xr) 75 mg PO DAILY [facility] Last Admin: 05/06/19 10:26 Dose: 75 mg
[2019-05-06] MEDS ORDERED: Dextrose 5 % And 0.9 % NaCl 1,000 ML IV SCH (16:00)
[2019-05-06] MEDS: Atorvastatin Calcium 40 MG TAB PO SCH (20:15)
[2019-05-07] MEDS: Levothyroxine Sodium 125 MCG TAB PO SCH (05:02)
[2019-05-07 05:47] LABS: Hemoglobin 10.8 g/dL (14.0-18.0); Platelet Count 112 thou/uL (130-400)
[2019-05-07 06:02] LABS: Anion Gap 12 mmol/L (10-20); BUN (Urea Nitrogen) 18 mg/dL (8.4-25.7); Calc. Creatinine Clearance 62 mL/min (70-130); Calcium 8.7 mg/dL (7.8-10.44); Carbon Dioxide 23 mmol/L (23-31); Chloride 108 mmol/L (98-107); Estimated GFR-MDRD 56; Glucose 94 mg/dL (83-110); Potassium 4.1 mmol/L (3.5-5.1); Sodium 139 mmol/L (136-145)
[2019-05-07] MEDS: Venlafaxine HCl XR 75 MG CAP PO SCH (09:04)
[2019-05-07] MEDS: Carbidopa/Levodopa 25-100 mg Tablet PO SCH ×2 (09:04→19:15)
[2019-05-07] MEDS: Folic Acid 1 MG TAB PO SCH (09:04)
[2019-05-07] MEDS: Aspirin 81 mg Enteric Coated Tablet PO SCH (09:04)
[2019-05-07] MEDS: Donepezil HCl 10 MG TAB PO SCH (09:05)
[2019-05-07] MEDS: Amlodipine 5 MG TAB PO SCH (09:05)
[2019-05-07] MEDS: Famotidine 20 MG TAB PO SCH (09:06)
[2019-05-07] MEDS: Multivit, Therapeutic 1 TAB PO SCH (09:06)
[2019-05-07] MEDS: Cyanocobalamin (Vitamin B-12) 1,000 MCG TAB PO SCH (09:06)
[2019-05-07] MEDS: Polyethylene Glycol 3350 17 GM Packet PO SCH (09:08)
[2019-05-07 11:20] VITALS: BP 119/69; TEMP 97.7
--- NOTE | 2019-05-07 15:07 | DIS ---
DATE OF ADMISSION: 05/02/2019 DATE OF DISCHARGE: 05/07/2019 DISCHARGE DISPOSITION: To [facility]. ALLERGIES: NO KNOWN DRUG ALLERGIES. DISCHARGE MEDICATIONS: 1. Vitamin C 1000 mg daily. 2. Aspirin 81 mg daily. 3. Lipitor 80 mg at bedtime. 4. Carbidopa and levodopa 50/200 three times daily. 5. Aricept 10 mg daily. 6. Fish oil 1000 mg three times daily. 7. Lasix 20 mg daily. 8. Levothyroxine 125 mcg daily. 9. Namenda 10 mg b.i.d. 10. Multivitamin one tablet daily. 11. Protonix 40 mg b.i.d. 12. Coenzyme Q10 twice a day. 13. Effexor 75 mg daily. 14. Bacitracin ointment as directed. 15. Tylenol as needed. 16. Amlodipine 5 mg daily. 17. Vitamin B12, 1000 mcg daily. 18. Folic acid 1 mg daily. 19. Nystatin powder as needed. 20. MiraLAX 17 g daily. 21. Senokot-S p.r.n. 22. Potassium chloride 20 mEq daily. 23. Thiamine 100 mg daily. TEST PENDING AT DISCHARGE: Vitamin B1 level (ordered by Dr. Jean Baptiste). The patient was seen and examined on the day of discharge. Denies any new complaints. No chest pain, shortness of breath, or palpitations. Mentation has significantly improved. The patient was advised to follow up with his primary neurologist, Dr. Pagan. BRIEF HOSPITAL COURSE: The patient is an 84-year-old male with Parkinson disease, dementia, hypertension, and normal-pressure hydrocephalus status post CONSUMER SALES REPRESENTATIVE shunt, currently residing at [facility], was brought in on 02 May 2019 with altered mentation and lethargy. He was monitored on the medical floor. No obvious etiology was identified. His electrolytes were essentially in normal range. Folic acid was low at 5.5. Vitamin B12 was 382. Urinalysis and urine cultures were negative. His blood culture 1 of 2 showed coagulase-negative Staphylococcus. He was seen by Dr. Jean Baptiste, who recommended to discontinue antibiotics. The exact etiology of the patient's confusion remains unclear. I discussed with the patient's primary neurologist, Dr. Pagan, who recommended to continue current dose of Sinemet with an outpatient followup. He was also seen by Neurology, Dr. Henderson at this facility. Dr. Henderson recommended low dose Seroquel. After taking Seroquel, the patient remained somnolent for next 24 hours. For this reason, it was discontinued. His mentation has remained stable over the last 24 hours. His altered mentation is probably secondary to advanced Parkinson disease with dementia. Again, no obvious etiology for altered mentation was identified despite evaluation by Neurology and Infectious Disease. His vitamin B1 level ordered by Dr. Jean Baptiste is pending at this time. DIAGNOSTIC TESTS: Echocardiogram showed left ventricular ejection fraction of 60% to 65% with diastolic dysfunction, trace tricuspid regurgitation. Right upper quadrant ultrasound was negative for acute findings. It showed minimal nodularity of the hepatic contour, could be related to cirrhosis. CT scan of the brain was negative. Chest CT was negative for pneumonia. FINAL DIAGNOSES: 1. Toxic metabolic encephalopathy of unclear etiology. If his mentation gets worse, probably checking ammonia would be beneficial. 2. 1 of 2 blood cultures positive for coagulase-negative Staphylococcus. Contaminant per Dr. Jean Baptiste. 3. 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 Pagan. The case was discussed with Dr. Pagan. He also follows a movement disorder specialist. 4. Hypothyroidism. 5. History of normal-pressure hydrocephalus status post CONSUMER SALES REPRESENTATIVE shunt. 6. Coronary artery disease. 7. Folic acid deficiency, started on replacement. 8. Low normal vitamin B12. Vitamin B12 dose has been increased from 500 mcg daily to 1000 mcg daily. 9. Chronic kidney disease, stage 3. 10. Chronic macrocytic anemia, probably secondary to folic acid deficiency. 11. Thrombocytopenia. His platelets on the day of discharge are 112. 12. Gastroesophageal reflux disease. 13. Suspected cirrhosis based on the right upper quadrant ultrasound. 14. Chronic diastolic heart failure on the echocardiogram. 15. Trace tricuspid regurgitation. The plan was discussed with the patient's spouse over the phone, who agrees with the current plan of care. Total time coordinating the discharge of this patient was 34 minutes. Job ID: [id number]
--- NOTE | 2019-05-08 12:22 | EKG ---
Test Reason : WEAKNESS Blood Pressure : / mmHG Vent. Rate : 071 BPM Atrial Rate : 071 BPM P-R Int : 190 ms QRS Dur : 106 ms QT Int : 396 ms P-R-T Axes : 090 -48 051 degrees QTc Int : 430 ms Normal sinus rhythm Left anterior fascicular block Confirmed by MONTANA CASILLAS DO ([id number]), senior editor SALINA LOPEZ ([id number] on 05/08/2019 12:22:33 PM Referred By: DO CASILLAS Confirmed By:MONTANA CASILLAS DO
== END 2019-05-07 15:04 | DRG 92 ==
LOC: ERS 11:23 → T4-A 15:32 → OBSVTOIN 21:18
PROVIDERS: ADMIT Internal Medicine; ATTEND Internal Medicine
DX: G92 Toxic encephalopathy (principal); I50.32 Chronic diastolic (congestive) heart failure; I13.0 Hypertensive heart and chronic kidney disease with heart failure and stage 1 through stage 4 chronic kidney disease, or unspecified chronic kidney disease; G20 Parkinson's disease; F02.80 Dementia in other diseases classified elsewhere, unspecified severity, without behavioral disturbance, psychotic disturbance, mood disturbance, and anxiety; E03.9 Hypothyroidism, unspecified; N18.3 Chronic kidney disease, stage 3 (moderate); K21.9 Gastro-esophageal reflux disease without esophagitis; D63.1 Anemia in chronic kidney disease; D69.6 Thrombocytopenia, unspecified; E66.9 Obesity, unspecified; I25.5 Ischemic cardiomyopathy; I25.10 Atherosclerotic heart disease of native coronary artery without angina pectoris; Z95.5 Presence of coronary angioplasty implant and graft; Z90.49 Acquired absence of other specified parts of digestive tract; Z68.33 Body mass index [BMI] 33.0-33.9, adult
CPT/HCPCS: 36415; 51701; 70450; 71045; 71250; 76705; 80048; 80053; 81003; 82010; 82330; 82607; 82746; 82803; 83735; 83880; 84100; 84425; 84484; 85014; 85018; 85025; 85048; 85049; 86780; 87040; 87086; 87149; 93005; 93306; 94640; 94760; J0690; J1650; J7620

== ENCOUNTER 2020-01-08 09:19 | Emergency (ER) | payer MEDICARE, BC, MEDICAID ==
[2020-01-08 10:08] LABS: #Eosinphils 0.2 thou/uL (0.0-0.7); #Lymphocytes 1.5 thou/uL (1.20-3.40); #Monocytes 0.8 thou/uL (0.11-0.59); #Neutrophils 5.9 thou/uL (1.40-6.50); %Lymphocytes 18.4 % (21.0-51.0); %Monocytes 9.7 % (0.0-10.0); %Neutrophils 69.9 % (42.0-75.0); Hemoglobin 12.5 g/dL (14.0-18.0); Mean Corpuscular Hemoglobin 33.6 pg (27.0-31.0); Mean Corpuscular Volume 98.6 fL (78.0-98.0); Mean Platelet Volume 9.7 fL (7.4-10.4); Platelet Count 191 thou/uL (130-400); RBC Distribution Width 12.9 % (11.5-14.5); Red Blood Cell (RBC) Count 3.73 mill/uL (4.70-6.10); White Blood Cell (WBC) Count 8.4 thou/uL (4.8-10.8)
[2020-01-08 10:24] LABS: ALT (SGPT) 22 U/L (8-55); AST (SGOT) 25 U/L (5-34); Albumin 3.9 g/dL (3.4-4.8); Alkaline Phosphatase 180 U/L (40-110); Anion Gap 12 mmol/L (10-20); BUN (Urea Nitrogen) 18 mg/dL (8.4-25.7); Bilirubin, Total 0.9 mg/dL (0.2-1.2); Calc. Creatinine Clearance 0 mL/min (70-130); Calcium 9.2 mg/dL (7.8-10.44); Carbon Dioxide 26 mmol/L (23-31); Chloride 109 mmol/L (98-107); Estimated GFR-MDRD 60; Globulin 3.2 g/dL (2.4-3.5); Glucose 127 mg/dL (83-110); Potassium 4.1 mmol/L (3.5-5.1); Protein, Total 7.1 g/dL (5.8-8.1); Sodium 143 mmol/L (136-145)
--- NOTE | 2020-01-08 10:45 | RAD ---
Shuntogram Skull 2 views Cervical spine 1 view Chest one view Abdomen one view HISTORY: Neck pain. Fever. FINDINGS: Right frontal ventriculostomy shunt is in place. Tubing over the head and neck is radiograp hically intact. It runs along the right side of the chest and the right side of the abdomen, coiled over the right lower quadrant. No discontinuity evident. There are postoperative changes of the cervical spine. Degenerative changes throughout the spine. Lob ular calcifications projecting over the inferior pole of the left renal shadow measuring up to 0.5 cm greatest diameter. IMPRESSION: Right frontal ventriculoperitoneal shunt is radiographically intact. Probable left renal calculi.
--- NOTE | 2020-01-08 11:14 | CT ---
CT head noncontrast HISTORY: Headache. COMPARISON: 05/02/2019. FINDINGS: There is no evidence of acute intracranial hemorrhage or infarct. Ventricular dilatation an d diffuse cortical atrophy similar in appearance to the prior study. Right frontal ventriculostomy catheter remains in place. There is no mass effect or shift of midline structures. Visualized paranas al sinuses remain well aerated. IMPRESSION: Chronic ventriculomegaly and other findings are stable. No acute intracranial abnormaliti es are demonstrated.
--- NOTE | 2020-01-08 11:18 | CT ---
CT cervical spine noncontrast HISTORY: Neck pain. COMPARISON: 08/17/2018. FINDINGS: Vertebral body heights and alignment are maintained. Anterior operative fixation at the C3- 4 level again demonstrated without. Hardware lucency. Disc space narrowing most pronounced at the C5-6 and C6-7 levels. Osteophytosis throughout the verteb ral bodies and facets. No acute fracture or dislocation are apparent. Ventriculoperitoneal shunt partially visualized. IMPRESSION: Postoperative and degenerative changes. No acute osseous abnormalities are demonstrated.
[2020-01-08 12:54] LABS: Bilirubin Negative (Negative); Blood, Urine Trace (Negative); Glucose, Urine (Dipstick) Negative (Negative); Leukocyte Negative (Negative); Nitrite Negative (Negative); Protein, Urine (Dipstick) Negative (Neg-Trace); Urobilinogen > or = 8.0 mg/dL (Less than 2)
[2020-01-08 12:56] LABS: Clarity Clear (Clear)
[2020-01-08 12:57] LABS: Bacteria/HPF None Seen HPF (None Seen); RBC/HPF 0-3 HPF (0-3); Squamous Epithelial 0-3 HPF (0-3); WBC/HPF 0-3 HPF (0-3)
== END 2020-01-08 14:22 | disposition home or self-care (01) ==
LOC: ERS 09:19
DX: M54.2 Cervicalgia (principal); R51 Headache; M54.9 Dorsalgia, unspecified; I25.10 Atherosclerotic heart disease of native coronary artery without angina pectoris; E03.9 Hypothyroidism, unspecified; K21.9 Gastro-esophageal reflux disease without esophagitis; D64.9 Anemia, unspecified; E78.5 Hyperlipidemia, unspecified; I10 Essential (primary) hypertension; G20 Parkinson's disease; F02.80 Dementia in other diseases classified elsewhere, unspecified severity, without behavioral disturbance, psychotic disturbance, mood disturbance, and anxiety; F32.9 Major depressive disorder, single episode, unspecified; Z79.51 Long term (current) use of inhaled steroids; Z79.82 Long term (current) use of aspirin; Z79.899 Other long term (current) drug therapy; W19.XXXA Unspecified fall, initial encounter
CPT/HCPCS: 36415; 51701; 70450; 72125; 75809; 80053; 81003; 81015; 83605; 84484; 85025; 87040; 87086; 87804; 93005; 94640; 96360; 96361; J7620